=== PATIENT | female | born 1965 | race Caucasian/White ===

== ENCOUNTER 2018-07-02 04:51 | Inpatient (IN) | payer BC ==
[2018-07-02 05:45] LABS: Absolute Lymphocytes (CBC) 3.1 K/uL (0.7-4.9); Absolute Monocytes 0.6 K/uL (0.1-1.3); Absolute Neutrophil 3.9 K/uL (1.8-8.0); Eosinophils % 2.4 % (0-4.4); Hematocrit 41.9 % (36.0-45.0); Lymphocytes % 39.2 % (15.3-44.8); Monocytes % 7.8 % (3.3-12.3); RBC Red Blood Cell Count 4.84 M/uL (3.86-4.86)
[2018-07-02 06:01] LABS: ALT/SGPT 18 U/L (12-78); AST/SGOT 10 U/L (15-37); Albumin 3.7 g/dL (3.4-5.0); Alkaline Phosphatase 96 U/L (45-117); BUN Blood Urea Nitrogen 10 mg/dL (7-18); Bicarbonate 24 mmol/L (21-32); Bilirubin Direct 0.2 mg/dL (0-0.2); Bilirubin Total 0.8 mg/dL (0.2-1.0); Glucose Level 84 mg/dL (74-106); Lipase 70 U/L (73-393); Potassium 3.7 mmol/L (3.5-5.1); Protein, Total 7.4 g/dL (6.4-8.2); Sodium Level 136 mmol/L (136-145)
[2018-07-02] MEDS ORDERED: KETOROLAC 30 MG/ML INJ ONE (06:46)
[2018-07-02] MEDS ORDERED: ONDANSETRON 4 MG/2 ML VIAL ONE ×2 (06:46→07:34)
[2018-07-02] MEDS ORDERED: MORPHINE 4 MG/ML SYR ONE ×2 (06:46→07:34)
[2018-07-02] MEDS ORDERED: NA CHLORIDE 0.9% 1,000 ML ONE ×2 (06:46→07:34)
[2018-07-02 07:13] LABS: Urine Blood NEGATIVE (NEG); Urine Glucose NEGATIVE (NEG); Urine Protein TRACE (NEG); Urine pH 8.5 (5.0-7.0)
[2018-07-02] MEDS ORDERED: HYDROMORPHONE HCL 1 MG/ML INJ ONE (08:54)
--- NOTE | 2018-07-02 08:55 | ER ---
Nurse's Notes [facility] Name: Varsha Huang Age: 53 yrs Sex: Female : 1965 Arrival Date: 07/02/2018 Time: 04:53 Bed 17 Private MD: Diagnosis: Unilateral femoral hernia, with obstruction, without gangrene, not specified as recurrent-Right Presentation: 07/02 05:14 Presenting complaint: Patient states: sudden right lower quadrant pain started 1930H rr5 last night continuous pain,crying facial grimace noted pain score of 10/10. diagnosed with ovary cyst right. Transition of care: patient was not received from another setting of care. Onset of symptoms was July 01, 2018 at 19:30. Risk Assessment: Do you want to hurt yourself or someone else? Patient reports no desire to harm self or others. Initial Sepsis Screen: Does the patient meet any 2 criteria? No. Patient's initial sepsis screen is negative. Does the patient have a suspected source of infection? No. Patient's initial sepsis screen is negative. Care prior to arrival: Medication(s) given: tramadol 50 mg and phentermine 37.5mg. 05:14 Method Of Arrival: Ambulatory rr5 05:14 Acuity: BINDU 3 rr5 Triage Assessment: 05:15 General: see nurses notes assessment. 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 - Social history:: Smoking status: Patient uses tobacco products, smokes one-half pack cigarettes per day, Patient/guardian denies using alcohol, street drugs. - Ebola Screening: : Patient negative for fever greater than or equal to 101.5 degrees Fahrenheit, and additional compatible Ebola Virus Disease symptoms Patient denies exposure to infectious person Patient denies travel to an Ebola-affected area in the 21 days before illness onset. - Family history:: not pertinent. Screenin:33 Abuse screen: Denies threats or abuse. Denies injuries from another. Nutritional rr5 screening: No deficits noted. On. Tuberculosis screening: No symptoms or risk factors identified. Fall Risk IV access (20 points). Total Ascencio Fall Scale indicates No Risk (0-24 pts). Assessment: 05:15 General: Appears uncomfortable, ill, Behavior is cooperative, appropriate for age, rr5 crying. 05:15 Pain: Complains of pain in Right lower quadrant Pain does not radiate. Pain currently rr5 is 10 out of 10 on a pain scale. Quality of pain is described as aching, Pain began gradually, Is continuous. Neuro: Level of Consciousness is awake, alert, obeys commands, Oriented to person, place, time, situation. Cardiovascular: Capillary refill < 3 seconds Patient's skin is warm and dry. Respiratory: Airway is patent Respiratory effort is even, unlabored, Respiratory pattern is tachypnea. GI: Bowel sounds present X 4 quads. Abd is soft and non tender X 4 quads. : Reports pain in right lower quadrant(s) diagnose with right ovary cyst. EENT: No signs and/or symptoms were reported regarding the EENT system. Derm: No signs and/or symptoms reported regarding the dermatologic system. Musculoskeletal: No signs and/or symptoms reported regarding the musculoskeletal system. 06:20 Reassessment: No changes from previously documented assessment. seen and examined by ed rr5 provider with order and carried out. 07:08 General: Appears uncomfortable, Behavior is cooperative, crying. Pain: Complains of aa5 pain in right lower quadrant Pain does not radiate. Pain currently is 9 out of 10 on a pain scale. Quality of pain is described as sharp, Pain began 1 day ago. Is continuous, Aggravated by repositioning, Noted to be resistant to movement. Neuro: Level of Consciousness is awake, alert, obeys commands, Oriented to person, place, time, situation. Cardiovascular: Heart tones S1 S2 present Rhythm is regular. Respiratory: Airway is patent Respiratory effort is even, unlabored, Respiratory pattern is regular, symmetrical. GI: Abdomen is round non-distended, Bowel sounds present X 4 quads. Abd is soft X 4 quads Abdomen is tender to palpation in right lower quadrant Reports nausea, Patient currently denies vomiting. : Denies vaginal bleeding. EENT: No signs and/or symptoms were reported regarding the EENT system. Derm: Skin is pink, warm \T\ dry. Musculoskeletal: Range of motion: intact in all extremities. 07:34 Reassessment: Pt taken to US via stretcher . aa5 08:32 Reassessment: Patient is alert, oriented x 3, equal unlabored respirations, skin aa5 warm/dry/pink. Patient states symptoms have improved. Pt back from US. Awaiting CT scan and US results at this time, pt notified of wait time. Pt's family at bedside . General: Appears comfortable. Pain: Pain currently is 4 out of 10 on a pain scale. 08:51 Reassessment: PA at bedside attempting to reduce hernia. aa5 09:05 Reassessment: Dr. Read at bedside (surgeon). aa5 09:40 Reassessment: Patient and/or family updated on plan of care and expected duration. Pain aa5 level reassessed. Patient is alert, oriented x 3, equal unlabored respirations, skin warm/dry/pink. Patient states feeling better. Vital Signs: 05:17 BP 131 / 89; Pulse 100; Resp 22; Temp 97.9; Pulse Ox 99% on R/A; Weight 93.44 kg; rr5 Height 5 ft. 4 in. (162.56 cm); Pain 10/10; 06:30 BP 115 / 72; Pulse 72; Resp 16; Pulse Ox 99% ; rr5 07:10 BP 118 / 69; Pulse 72; Resp 18 S; Temp 97.9(O); Pulse Ox 99% on R/A; Pain 9/10; aa5 08:35 BP 124 / 67; Pulse 65; Resp 16 S; Pulse Ox 100% on R/A; Pain 4/10; aa5 09:17 BP 113 / 60; Pulse 70; Resp 14; Pulse Ox 99% on R/A; mh5 09:40 BP 118 / 61; Pulse 64; Resp 16 S; Temp 98.0(TE); Pulse Ox 100% on R/A; Pain 2/10; aa5 05:17 Body Mass Index 35.36 (93.44 kg, 162.56 cm) rr5 ED Course: 04:53 Patient arrived in ED. ag3 05:13 Aditya Cruz, RN is Primary Nurse. rr5 05:15 Patient has correct armband on for positive identification. Bed in low position. Call rr5 light in reach. Side rails up X2. Pulse ox on. NIBP on. 05:17 Triage completed. rr5 05:20 Arm band placed on. rr5 05:30 Inserted saline lock: 22 gauge in right antecubital area, using aseptic technique. rr5 Blood collected. tc MORA. 06:00 Silver Justice MD is Attending Physician. [facility] 07:00 Report received from MORGAN Burgess. aa5 07:08 CT Stone Protocol In Process Unspecified. EDMS 07:32 Silver Santiago PA is PHCP. cp 07:41 Ultrasound completed. Patient tolerated well. sg3 08:38 No provider procedures requiring assistance completed. aa5 08:54 Avinash Read MD is Hospitalizing Provider. cp 09:26 Surgical consent explained by physician, signed by patient. iw 09:33 EKG done, by ED staff, reviewed by Ken Jaeger MD. mh5 09:37 X-ray completed. Portable x-ray completed in exam room. Patient tolerated procedure sg4 well. 09:43 XRAY Chest (1 view) In Process Unspecified. EDMS 09:48 Rosales cath inserted, using sterile technique, 18 Fr., by va, balloon inflated, to aa5 gravity drainage, returned clear yellow urine. Patient tolerated well. 09:55 Patient admitted, IV remains in place. aa5 Administered Medications: 06:30 Drug: Zofran 4 mg Route: IVP; Site: right antecubital; rr5 07:25 Follow up: Response: No adverse reaction rr5 06:30 Drug: NS 0.9% 1000 ml Route: IV; Rate: 1 bolus; Site: right antecubital; rr5 08:32 Follow up: IV fluids paused, pt to US at 0734. Pt back from US and fluids restarted at aa5 0832 09:15 Follow up: IV Status: Completed infusion aa5 06:32 Drug: morphine 4 mg Route: IVP; Site: right antecubital; rr5 07:25 Follow up: Response: No adverse reaction rr5 06:37 Drug: TORadol 30 mg Route: IVP; Site: right antecubital; rr5 07:25 Follow up: Response: No adverse reaction rr5 07:25 Drug: NS 0.9% 1000 ml Route: IV; Rate: 1 bolus; Site: right antecubital; aa5 08:32 Follow up: Fluids paused at 0734 (pt to US). Fluids restarted at 0832 (Pt back from US) aa5 09:40 Follow up: IV Status: Infusion continued upon admission aa5 07:25 Drug: morphine 4 mg Route: IVP; Site: right antecubital; aa5 07:33 Follow up: Response: No adverse reaction aa5 07:25 Drug: Zofran 4 mg Route: IVP; Site: right antecubital; aa5 07:33 Follow up: Response: No adverse reaction aa5 08:50 Drug: Dilaudid 1 mg Route: IVP; Site: right antecubital; aa5 08:53 Follow up: Response: No adverse reaction aa5 09:15 Drug: LevaQUIN 750 mg Volume: 150 ml; Route: IVPB; Infused Over: 90 mins; Site: right jl7 antecubital; 09:40 Follow up: Response: No adverse reaction; IV Status: Infusion continued upon admission aa5 09:20 Drug: metroNIDAZOLE 500 mg Volume: 100 ml; Route: IVPB; Infused Over: 30 mins; Site: jl7 right antecubital; 09:40 Follow up: Response: No adverse reaction; IV Status: Infusion continued upon admission aa5 Intake: Outcome: 08:55 Decision to Hospitalize by Provider. cp 09:55 Admitted to OR accompanied by nurse, via stretcher, with chart. aa5 09:55 Condition: stable 09:55 Instructed on the need for admit, Demonstrated understanding of instructions. 10:04 Patient left the ED. aa5 Signatures: Dispatcher [employer] Silver Rios MD MD cha Williams, Irene, RN Radha Bledsoe RN RN aa5 Silver Santiago PA PA cp Martinez, Maria 5 Vicki Li RN RN jl7 Luz Rain3 Asya Leija Susana sg4 Aditya Cruz, MORGAN RN rr5 Corrections: (The following items were deleted from the chart) 07:12 05:19 Allergies: sulfer; rr5 aa5 08:03 08:02 In radiology for Transvaginal Study (Probe)+US.RAD.[email or web address]. ELMIRA sg3
--- NOTE | 2018-07-02 08:56 | EDPHYS ---
Physician Documentation [facility] Name: Varsha Huang Age: 53 yrs Sex: Female : 1965 Arrival Date: 07/02/2018 Time: 04:53 Bed 17 Private MD: ED Physician Silver Justice HPI: 07/02 06:35 This 53 yrs old Female presents to ER via Ambulatory with complaints of fernando Abdominal Pain. 06:35 The patient presents with abdominal pain in the lower abdomen. Onset: The fernando symptoms/episode began/occurred 2 day(s) ago. The symptoms do not radiate. Associated signs and symptoms: none. The symptoms are described as crampy, sharp. Modifying factors: The symptoms are alleviated by nothing, the symptoms are aggravated by nothing. Severity of pain: At its worst the pain was moderate severe in the emergency department the pain is unchanged. The patient has experienced similar episodes in the past, multiple times. 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 - Social history:: Smoking status: Patient uses tobacco products, smokes one-half pack cigarettes per day, Patient/guardian denies using alcohol, street drugs. - Ebola Screening: : Patient negative for fever greater than or equal to 101.5 degrees Fahrenheit, and additional compatible Ebola Virus Disease symptoms Patient denies exposure to infectious person Patient denies travel to an Ebola-affected area in the 21 days before illness onset. - Family history:: not pertinent. ROS: 06:35 Constitutional: Negative for fever, chills, and weight loss, Eyes: Negative for injury, fernando pain, redness, and discharge, ENT: Negative for injury, pain, and discharge, Neck: Negative for injury, pain, and swelling, Cardiovascular: Negative for chest pain, palpitations, and edema, Respiratory: Negative for shortness of breath, cough, wheezing, and pleuritic chest pain, Back: Negative for injury and pain, : Negative for injury, bleeding, discharge, and swelling, MS/Extremity: Negative for injury and deformity, Skin: Negative for injury, rash, and discoloration, Neuro: Negative for headache, weakness, numbness, tingling, and seizure, Psych: Negative for depression, anxiety, suicide ideation, homicidal ideation, and hallucinations, Allergy/Immunology: Negative for hives, rash, and allergies, Endocrine: Negative for neck swelling, polydipsia, polyuria, polyphagia, and marked weight changes. 06:35 Abdomen/GI: Positive for abdominal pain, nausea and vomiting, of the suprapubic area, right lower quadrant and left lower quadrant. Exam: 06:35 Constitutional: This is a well developed, well nourished patient who is awake, alert, fernando and in no acute distress. Head/Face: Normocephalic, atraumatic. Eyes: Pupils equal round and reactive to light, extra-ocular motions intact. Lids and lashes normal. Conjunctiva and sclera are non-icteric and not injected. Cornea within normal limits. Periorbital areas with no swelling, redness, or edema. ENT: Nares patent. No nasal discharge, no septal abnormalities noted. Tympanic membranes are normal and external auditory canals are clear. Oropharynx with no redness, swelling, or masses, exudates, or evidence of obstruction, uvula midline. Mucous membranes moist. Neck: Trachea midline, no thyromegaly or masses palpated, and no cervical lymphadenopathy. Supple, full range of motion without nuchal rigidity, or vertebral point tenderness. No Meningismus. Chest/axilla: Normal chest wall appearance and motion. Nontender with no deformity. No lesions are appreciated. Cardiovascular: Regular rate and rhythm with a normal S1 and S2. No gallops, murmurs, or rubs. Normal PMI, no JVD. No pulse deficits. Respiratory: Lungs have equal breath sounds bilaterally, clear to auscultation and percussion. No rales, rhonchi or wheezes noted. No increased work of breathing, no retractions or nasal flaring. Abdomen/GI: Soft, non-tender, with normal bowel sounds. No distension or tympany. No guarding or rebound. No evidence of tenderness throughout. Back: No spinal tenderness. No costovertebral tenderness. Full range of motion. Skin: Warm, dry with normal turgor. Normal color with no rashes, no lesions, and no evidence of cellulitis. MS/ Extremity: Pulses equal, no cyanosis. Neurovascular intact. Full, normal range of motion. Neuro: Awake and alert, GCS 15, oriented to person, place, time, and situation. Cranial nerves II-XII grossly intact. Motor strength 5/5 in all extremities. Sensory grossly intact. Cerebellar exam normal. Normal gait. Psych: Awake, alert, with orientation to person, place and time. Behavior, mood, and affect are within normal limits. Vital Signs: 05:17 BP 131 / 89; Pulse 100; Resp 22; Temp 97.9; Pulse Ox 99% on R/A; Weight 93.44 kg; rr5 Height 5 ft. 4 in. (162.56 cm); Pain 10/10; 06:30 BP 115 / 72; Pulse 72; Resp 16; Pulse Ox 99% ; rr5 07:10 BP 118 / 69; Pulse 72; Resp 18 S; Temp 97.9(O); Pulse Ox 99% on R/A; Pain 9/10; aa5 08:35 BP 124 / 67; Pulse 65; Resp 16 S; Pulse Ox 100% on R/A; Pain 4/10; aa5 09:17 BP 113 / 60; Pulse 70; Resp 14; Pulse Ox 99% on R/A; mh5 09:40 BP 118 / 61; Pulse 64; Resp 16 S; Temp 98.0(TE); Pulse Ox 100% on R/A; Pain 2/10; aa5 05:17 Body Mass Index 35.36 (93.44 kg, 162.56 cm) rr5 MDM: 06:00 Patient medically screened. [facility] 06:36 Data reviewed: vital signs, nurses notes, lab test result(s), radiologic studies, CT fernando scan, ultrasound. 08:51 Physician consultation: Avinash Read MD was called at 08:40, was contacted at 08:40, cp regarding patient's condition, and will see patient in ED, shortly. 07/02 05:20 Order name: Basic Metabolic Panel; Complete Time: 06:19 ms 07/02 05:20 Order name: CBC with Diff; Complete Time: 06:19 ms 07/02 05:20 Order name: Creatinine for Radiology; Complete Time: 06:19 ms 07/02 05:20 Order name: Hepatic Function; Complete Time: 06:19 ms 07/02 05:20 Order name: Lipase; Complete Time: 06:19 ms 07/02 06:50 Order name: Urine Dipstick--Ancillary (enter results); Complete Time: 07:15 07/02 06:50 Order name: Urine --Ancillary (enter results) 07/02 09:07 Order name: PT-INR 07/02 09:07 Order name: Ptt, Activated 07/02 09:58 Order name: Basic Metabolic Panel EDMS 07/02 09:58 Order name: Basic Metabolic Panel EDMS 07/02 09:58 Order name: CBC with Automated Diff EDMS 07/02 09:58 Order name: CBC with Automated Diff EDMS 07/02 09:58 Order name: Lipase EDMS 07/02 06:34 Order name: US Transvaginal Study (Probe) [facility] 07/02 06:34 Order name: CT Stone Protocol [facility] 07/02 08:57 Order name: XRAY Chest (1 view) 07/02 09:58 Order name: Lipase ED[facility] 07/02 09:58 Order name: Liver (Hepatic) Function EDNH 07/02 09:58 Order name: Liver (Hepatic) Function ED[facility] 07/02 05:20 Order name: IV Saline Lock; Complete Time: 05:38 ny 07/02 05:20 Order name: Labs collected and sent; Complete Time: 05:45 ny 07/02 05:20 Order name: Urine Dipstick-Ancillary (obtain specimen); Complete Time: 06:38 ny 07/02 06:34 Order name: Urine Test (obtain specimen); Complete Time: 06:57 [facility] 07/02 08:57 Order name: EKG; Complete Time: 08:58 07/02 08:57 Order name: EKG - Nurse/Tech; Complete Time: 09:26 07/02 09:07 Order name: Rosales; Complete Time: 09:51 07/02 09:16 Order name: NPO; Complete Time: 09:27 07/02 09:58 Order name: NPO EDMS Administered Medications: 06:30 Drug: Zofran 4 mg Route: IVP; Site: right antecubital; rr5 07:25 Follow up: Response: No adverse reaction rr5 06:30 Drug: NS 0.9% 1000 ml Route: IV; Rate: 1 bolus; Site: right antecubital; rr5 08:32 Follow up: IV fluids paused, pt to US at 0734. Pt back from US and fluids restarted at aa5 0832 09:15 Follow up: IV Status: Completed infusion aa5 06:32 Drug: morphine 4 mg Route: IVP; Site: right antecubital; rr5 07:25 Follow up: Response: No adverse reaction rr5 06:37 Drug: TORadol 30 mg Route: IVP; Site: right antecubital; rr5 07:25 Follow up: Response: No adverse reaction rr5 07:25 Drug: NS 0.9% 1000 ml Route: IV; Rate: 1 bolus; Site: right antecubital; aa5 08:32 Follow up: Fluids paused at 0734 (pt to US). Fluids restarted at 0832 (Pt back from US) aa5 09:40 Follow up: IV Status: Infusion continued upon admission aa5 07:25 Drug: morphine 4 mg Route: IVP; Site: right antecubital; aa5 07:33 Follow up: Response: No adverse reaction aa5 07:25 Drug: Zofran 4 mg Route: IVP; Site: right antecubital; aa5 07:33 Follow up: Response: No adverse reaction aa5 08:50 Drug: Dilaudid 1 mg Route: IVP; Site: right antecubital; aa5 08:53 Follow up: Response: No adverse reaction aa5 09:15 Drug: LevaQUIN 750 mg Volume: 150 ml; Route: IVPB; Infused Over: 90 mins; Site: right jl7 antecubital; 09:40 Follow up: Response: No adverse reaction; IV Status: Infusion continued upon admission aa5 09:20 Drug: metroNIDAZOLE 500 mg Volume: 100 ml; Route: IVPB; Infused Over: 30 mins; Site: jl7 right antecubital; 09:40 Follow up: Response: No adverse reaction; IV Status: Infusion continued upon admission aa5 Disposition: 07/02/18 08:55 Hospitalization ordered by Avinash Read for Inpatient Admission. Preliminary diagnosis is Unilateral femoral hernia, with obstruction, without gangrene, not specified as recurrent - Right. - Bed requested for Operating Room. - Status is Inpatient Admission. aa5 - Condition is Stable. - Problem is new. - Symptoms are unchanged. UTI on Admission? No Addendum: 07/11/2018 11:22 Co-signature as Attending Physician, Silver Justice MD I agree with the assessment and c grant plan of care. Signatures: Dispatcher [employer] EDSilver Park MD MD cha Solis, Maria ms Hein, Radha, RN RN aa5 Silver Santiago PA PA cp Leal, Jahala RN RN jl7 Aditya Cruz RN RN rr5 Corrections: (The following items were deleted from the chart) 07/02 07:12 05:19 Allergies: sulfer; rr5 aa5 09:08 08:55 Hospitalization Ordered by Avinash Read MD for Inpatient Admission. Preliminary cp diagnosis is Unilateral femoral hernia, with obstruction, without gangrene, not specified as recurrent - Right. Bed requested for Telemetry/MedSurg (Inpatient). Status is Inpatient Admission. Condition is Stable. Problem is new. Symptoms are unchanged. UTI on Admission? No. cp 10:04 09:08 07/02/2018 08:55 Hospitalization Ordered by Avinash Read MD for Inpatient aa5 Admission. Preliminary diagnosis is Unilateral femoral hernia, with obstruction, without gangrene, not specified as recurrent - Right. Bed requested for Operating Room. Status is Inpatient Admission. Condition is Stable. Problem is new. Symptoms are unchanged. UTI on Admission? No. cp
[2018-07-02] MEDS ORDERED: Levofloxacin 750mg IV 750 MG/150 ML BAG IV ONE (09:09)
[2018-07-02] MEDS ORDERED: METRONIDAZOLE 500mg IVPB 500 MG/100 ML BAG IV ONE (09:09)
[2018-07-02] MEDS ORDERED: ONDANSETRON 4 MG/2 ML VIAL IV PRN (09:54)
[2018-07-02] MEDS ORDERED: ACETAMINOPHEN 500 MG TAB PO PRN (09:54)
[2018-07-02] MEDS ORDERED: HYDROMORPHONE HCL 1 MG/ML INJ IV PRN (09:54)
[2018-07-02] MEDS ORDERED: D5 0.45 NS 1,000 ML IV SCH (10:00)
[2018-07-02] MEDS ORDERED: Ringers Lactate 1,000 ML IV ONE ×2 (10:25→13:38)
[2018-07-02] MEDS ORDERED: BUPIVACAINE 0.75% (PF) 2 ML SP ONE (10:40)
[2018-07-02] MEDS ORDERED: FENTANYL CITR 100 MCG/2 ML ONE (10:44)
[2018-07-02] MEDS ORDERED: MIDAZOLAM HCL 2 MG/2 ML INJ ONE (10:45)
[2018-07-02] MEDS ORDERED: BUPIVACA 0.25%/EPI 0.0005% MDV 50 ML VIAL ONE (10:45)
[2018-07-02] MEDS ORDERED: Phenylephrine HCl 10 MG/ML 1 ML VIAL ONE (10:45)
[2018-07-02] MEDS ORDERED: EPHEDRINE SULF 50 MG/10 ML SYR ONE (10:52)
[2018-07-02] MEDS ORDERED: LIDOCAINE 1% MPF 30 ML VIAL ONE (11:04)
--- NOTE | 2018-07-02 12:11 | RAD REPORT ---
EXAM DESCRIPTION: RAD - Chest Single View - 07/02/2018 9:42 am CLINICAL HISTORY: bowel obstruction Chest pain. COMPARISON: CHEST SINGLE VIEW dated 12/08/2014 FINDINGS: Portable technique limits examination quality. The lungs are grossly clear. The heart is normal in size. No displaced fractures. IMPRESSION: No acute intrathoracic process suspected.
--- NOTE | 2018-07-02 12:15 | RAD REPORT ---
EXAM DESCRIPTION: US - Transvaginal Study Probe - 07/02/2018 8:02 am CLINICAL HISTORY: Pain;Abd pain Pelvic pain. COMPARISON: No comparisons FINDINGS: The uterus is normal in size, shape and echotexture. The uterus measures 9.1 x 5.2 x 3.9 c m. The endometrial stripe measures 4 mm, normal. The right ovary measures 4.5 x 2.3 x 1.6 cm and contains multiple simple cysts, largest 2.5 x 2.2 cm. The left ovary was obscured by bowel gas. No significant pelvic ascites. IMPRESSION: Several right ovarian simple cysts, otherwise negative study.
--- NOTE | 2018-07-02 12:19 | P.OP ---
Preoperative diagnosis: Right Incarcerated Femoral Hernia Postoperative diagnosis: Right Incarcerated Femoral Hernia Primary procedure: Open Repair of Right Incarcerated Femoral Hernia Anesthesia: Spinal + Local Estimated blood loss: <2cc Specimen: Hernia Sack Findings: ~1cm hernia neck, bowel viable Complications: None Drain(s): Urinary catheter Transferred to: Recovery Room Condition: Good
--- NOTE | 2018-07-02 12:31 | RAD REPORT ---
EXAM DESCRIPTION: CT - Stone Protocol - 07/02/2018 7:08 am CLINICAL HISTORY: Flank pain. ABD PAIN COMPARISON: No comparisons TECHNIQUE: Axial images were obtained without oral or IV contrast. Lack of contrast limits solid org an and vascular assessment. The [id number] spans the entirety of the system partially obscuring uppermost abdomen and lung bases. Coronal reformatted images were obtained and reviewed. All CT scans are performed using dose optimization technique as appropriate and may include automated exposure control or mA/KV adjustment according to patient size. FINDINGS: The lower lung rodriguez are clear. Cholecystectomy clips. Imaged portions of the liver and spleen show no suspicious findings on non-contrast imaging. The panc reas and adrenal glands are normal. No pathologic lymphadenopathy in the abdomen or pelvis. No urinary tract stones or obstructive uropathy. No bowel obstruction, free air, free fluid or abscess. Normal appendix noted. No significant bony abnormality. Right inguinal hernia is present containing fat and a small section of small bowel. Small amount of inflammatory changes are present within the hernia. IMPRESSION: No urinary tract stones or obstructive uropathy. Small bowel containing small right inguinal hernia. Mild inflammation in the hernia sac is seen.
[2018-07-02] MEDS ORDERED: ONDANSETRON 4 MG (ODT) TAB PO PRN (12:59)
[2018-07-02 14:55] LABS: Protime INR 1.13
[2018-07-02] MEDS: INSULIN -REGULAR HUMAN 50 UNIT/0.5 ML ML SQ SCH ×2 (16:02→21:00)
[2018-07-02] MEDS ORDERED: METRONIDAZOLE 500mg IVPB 500 MG/100 ML BAG IV SCH (17:00)
--- NOTE | 2018-07-02 17:27 | EKG ---
Test Date: 2018-07-02 Test Time: 09:27:32 Technical Editor: MICK MEASUREMENT RESULTS: Intervals: Rate: 54 CA: 146 QRSD: 90 QT: 428 QTc: 405 [place]: P: 13 CA: 146 QRS: 39 T: 25 INTERPRETIVE STATEMENTS: Sinus bradycardia Otherwise normal ECG Compared to ECG 12/07/2014 21:22:54 Sinus rhythm no longer present Electronically Signed On 07-02-18 17:17:52 DRAFTER TOPOGRAPHICAL by Sal Abebe
[2018-07-02] MEDS: HYDROCODONE/APAP 7.5/325 MG TAB PO PRN ×2 (17:54→23:56)
[2018-07-02] MEDS ORDERED: POTASSIUM CL SA 10 MEQ TAB PO ONE (20:00)
--- NOTE | 2018-07-02 20:45 | HP ---
Date of Admission: 07/02/2018 Brief History Of Present Illness: The patient is a 53-year-old female, who presents with a pproximately 1-day history of abdominal pain beginning in the belt-like distribution and then localiz ing to the right lower quadrant. She has had similar episodes before several weeks ago. She had bee n seen at [facility]. She states she had CTs of the abdomen and pelvis, which did not show any evidence of problems at that time, but these reports are unavailable for my review at this time. Sh e states the pain got progressively worse and it was localized to the right lower quadrant. She had a little knot appear in this area, which was quite tender to palpation. She has had similar episodes before in the past over several years, but they typically will go away on their own with lying down, but on this particular occasion, it did not get any better. She had some mild nausea associated wit h no vomiting. No change in bowel or bladder habits, but the pain was the main reason for her presen tation. Past Medical History: Significant for ovarian cyst on the right. Past Surgical History: She has had a cholecystectomy, a tubal ligation, an endometrial ablation davis svaginally, ankle surgery, and lower back surgery. Allergies: TO SULFA. Home Medications: Include tramadol and phentermine. Social History: She is a pack per day smoker for approximately 20 years. She denies alcohol or recr eational drug use. 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 Review of Systems: A 10-point review of systems other than HPI, denies. Physical Examination: General: At the time of my examination, she is awake, alert, and oriented. Psychiatric: She is appropriately conversive. HEENT: She is normocephalic. Her sclerae are anicteric. Her mucous membranes are moist. Oropharyn x is clear. She has poor dentition. Neck: Supple without JVD. Chest: Normal expansion and excursion. Cardiovascular: Regular rate and rhythm. Pulmonary: Clear to auscultation bilaterally. Abdomen: Soft, obese with mild tenderness in the right lower quadrant. There is a palpable hernia i n the femoral canal in the right abdomen which is incarcerated at this time. I am unable to reduce t he hernia at this time. Extremities: No clubbing, cyanosis, or edema. Skin: Warm and dry. Laboratory Data: Reveals a white blood count 10.8, hemoglobin 14.6, hematocrit 41.9, platelet count is 227, neutrophils are 49.6. PT is currently pending. Sodium 136, potassium 3.7, chloride 107, car bon dioxide 24, BUN 10, creatinine 0.4, glucose is 84, total bilirubin 0.8, direct component 0.2. T 10, ALT 18, alkaline phosphatase 96. Lipase 70. Urine test was negative. Urinalysis on ly showed 3+ ketones, otherwise negative. She had imaging performed which included a CT of the abdom en and pelvis, which was read by the night radiologist as right femoral hernia containing short segme nt of small bowel and producing associated small bowel obstruction. Normal appendix otherwise. Assessment And Plan: This is a 53-year-old female, who comes in with an incarcerated right femoral h ernia. 1.IV fluid hydration. 2.N.p.o. status. 3.Antibiotic coverage. 4.I have explained the risks, benefits, and alternatives of open femoral hernia repair possibly with use of mesh. I have explained the risks, benefits, and alternatives of this, including but not limi felice to bleeding, infection, damage to surrounding tissues, injury to blood vessels, nerves, limb dysf unction, leg dysfunction, foot dysfunction, swelling, which may be permanent to the right lower extremity, need for further operations and procedures. She agrees to proceed as indicated. TOMMY/SAMAN Voice ID: [id number]
--- NOTE | 2018-07-02 22:09 | OP ---
Date of Procedure: 07/02/2018 Surgeon: Avinash Read MD, MD Preoperative Diagnosis: Right incarcerated femoral hernia. Postoperative Diagnosis: Right incarcerated femoral hernia. Procedure Performed: Open repair of right incarcerated femoral hernia. Anesthesia: Spinal plus local. Estimated Blood Loss: Less than 2 cc. Specimens: Hernia sac. Findings: Approximately 1 cm hernia neck with small bowel, which was viable. No evidence of strangulations; however, the bowel was incarcerated. Complications: None. Drains: Urinary catheter. Disposition: Transferred to recovery room in good condition. Procedure In Detail: After informed consent was obtained, the patient was brought to the operating room, prepped and draped in the usual sterile fashion. After adequate spinal anesthesia was achieved, I tested the area of the right skin and it was found to be fairly insensate. I anesthetized the skin with additional local anesthesia and performed a Lotheissen type incision over the right inguinal area. I dissected down through the Camper's fat and Evelia's fascia using electrocautery down to expose the external oblique aponeurosis which was opened sharply with the scalpel and opened in its entirety with Metzenbaum scissors. I continued to dissect down towards the femoral canal and I exposed the femoral hernia defect. I dissected circumferentially around the neck, which found to be approximately 1 cm in size and open the hernia sac. Murky serosanguineous fluid was appreciated and the small bowel was then inspected at this time is found to be somewhat hyperemic button, but viable and pink and peristalsing and shiny. I therefore gently reduced the small bowel back to the preperitoneal space in the normal anatomic position and inspected the bowel. At this time, it pinked up perfectly and remained visible through the hernia neck defect. I then inspected the bowel 1 last time through the hernia defect and found the bowel to be entirely viable. I then irrigated the area and dried it. I then closed and ligated the hernia neck using a 0 Prolene suture with good hemostasis. I then ligated and removed the hernia sac and sent it off for pathologic examination. I then returned the hernia sac into the preperitoneal space through the hernia defect. I then digitally examined the defect and it was quite closed. At this time, I irrigated the area once again and moving medially to laterally. I secured the pectineal ligament to the iliopubic tract over the defect with 3 interrupted stitches from the pectineal fascia to the iliopubic tract. I then irrigated the area once again and the defect was quite well closed. The femoral vein was protected throughout its entirety. There was no kink or involvement of the femoral vein throughout the procedure. I then irrigated the area once again and dried it, and closed the external oblique aponeurosis over the defect, and using a 3-0 Vicryl in a running fashion with good approximation tissues, I irrigated it once again and dried, and then I closed Camper's fat and Evelia's fascia on block with a running 3-0 Vicryl suture. Once again, the skin was then copiously irrigated and closed with a 4-0 Monocryl in a running fashion. Dermabond placed over top. The patient tolerated the procedure well without evidence of complications, transferred to the PACU in good condition. All counts were correct at the end of the case. TOMMY/SAMAN Voice ID: [id number] Report ID: [id number] SAHARA
[2018-07-03 03:58] LABS: Absolute Lymphocytes (CBC) 1.9 K/uL (0.7-4.9); Absolute Monocytes 0.5 K/uL (0.1-1.3); Absolute Neutrophil 3.8 K/uL (1.8-8.0); Basophils % 0.7 % (0-1.3); Eosinophils % 4.2 % (0-4.4); Hematocrit 39.2 % (36.0-45.0); Lymphocytes % 29.7 % (15.3-44.8); MPV 7.8 fL (7.6-11.3); RBC Red Blood Cell Count 4.39 M/uL (3.86-4.86)
[2018-07-03 04:17] LABS: ALT/SGPT 72 U/L (12-78); AST/SGOT 57 U/L (15-37); Albumin 3.1 g/dL (3.4-5.0); Alkaline Phosphatase 131 U/L (45-117); BUN Blood Urea Nitrogen 9 mg/dL (7-18); Bicarbonate 26 mmol/L (21-32); Bilirubin Direct 0.2 mg/dL (0-0.2); Bilirubin Total 0.5 mg/dL (0.2-1.0); Glucose Level 103 mg/dL (74-106); Lipase 63 U/L (73-393); Magnesium 1.7 mg/dL (1.8-2.4); Phosphorus 3.4 mg/dL (2.5-4.9); Potassium 3.9 mmol/L (3.5-5.1); Protein, Total 6.3 g/dL (6.4-8.2); Sodium Level 138 mmol/L (136-145)
[2018-07-03] MEDS: MORPHINE 2 MG/ML SYR IV PRN ×3 (07:00→21:53)
[2018-07-03] MEDS: INSULIN -REGULAR HUMAN 50 UNIT/0.5 ML ML SQ SCH ×4 (07:30→21:00)
[2018-07-03] MEDS ORDERED: POTASSIUM 25 MEQ EFFERV TAB PO ONE (08:00)
[2018-07-03] MEDS ORDERED: MAGNESIUM SULFATE 1 gm IVPB 1 GM/100 ML BAG IV ONE ×2 (08:00)
[2018-07-03] MEDS: Levofloxacin500mg IV 500 MG/100 ML BAG IV SCH (08:45)
[2018-07-03] MEDS: ENOXAPARIN 40 MG/0.4 ML SQ SCH (08:45)
[2018-07-03] MEDS ORDERED: Levofloxacin 750mg IV 750 MG/150 ML BAG IV SCH (09:00)
[2018-07-03] MEDS: HYDROCODONE/APAP 7.5/325 MG TAB PO PRN ×2 (10:06→17:50)
--- NOTE | 2018-07-03 14:21 | P.PN ---
Subjective Date of Service: 07/03/18 Chief Complaint: Femoral Hernia with bowel obstruction Subjective: Improving (Pain is improved from prior, but bottom steep tender in the RIGHT groin, minimal gas, no nausea or emesis) Physical Examination - Vital Signs Temperature: 98.3 F Blood Pressure: 107/57 Pulse: 83 Respirations: 16 Pulse Ox (%): 98 - Physical Exam General: Alert, In no apparent distress, Cooperative Respiratory: Normal air movement Cardiovascular: No edema Gastrointestinal: Other (soft, mild appropriate TTP to the RLQ, incision clean and dry) Assessment And Plan - Current Problems (Diagnosis) (1) Femoral hernia of right side Current Visit: Yes Status: Acute Plan: - continue diet - continue hydration - continue pain medication - lovenox - ambulate with assist - serial exams - await bowel function
[2018-07-04] MEDS: HYDROCODONE/APAP 7.5/325 MG TAB PO PRN (03:40)
[2018-07-04 05:30] LABS: BUN Blood Urea Nitrogen 6 mg/dL (7-18); Bicarbonate 28 mmol/L (21-32); Glucose Level 92 mg/dL (74-106); Magnesium 1.8 mg/dL (1.8-2.4); Phosphorus 3.4 mg/dL (2.5-4.9); Sodium Level 139 mmol/L (136-145)
[2018-07-04] MEDS ORDERED: MAGNESIUM SULFATE 1 gm IVPB 1 GM/100 ML BAG IV ONE (05:52)
[2018-07-04] MEDS: INSULIN -REGULAR HUMAN 50 UNIT/0.5 ML ML SQ SCH (07:30)
[2018-07-04] MEDS ORDERED: MORPHINE 4 MG/ML SYR IV PRN (09:00)
[2018-07-04] MEDS: ENOXAPARIN 40 MG/0.4 ML SQ SCH (09:17)
[2018-07-04] MEDS: Levofloxacin500mg IV 500 MG/100 ML BAG IV SCH (09:17)
--- NOTE | 2018-07-04 10:25 | P.DS ---
Admission Date: 07/02/18 Discharge Date: 07/04/18 Disposition: ROUTINE DISCHARGE Discharge Condition: GOOD Reason for Admission: Femoral Hernia with bowel obstruction Procedures: Open Right Femoral Hernia Repair - NO MESH - Problems (1) Femoral hernia of right side Current Visit: Yes Status: Acute Brief History of Present Illness: Patient is a 53 year old woman who presented with lump and tenderness to Right groin, workup revealed SBO due to femoral hernia Hospital Course: Patient did well post op and was tolerating diet, + bowel function, pain well controlled, was going outside to smoke. Vital Signs/Physical Exam: Temp Pulse Resp BP Pulse Ox 98.4 F 74 16 104/51 L 96 07/04/18 08:00 07/04/18 08:00 07/04/18 08:00 07/04/18 08:00 07/04/18 08:00 General: Alert, In no apparent distress, Cooperative Respiratory: Clear to auscultation bilaterally Cardiovascular: Normal pulses Gastrointestinal: Other (soft, mild appropriate TTP, ND, incisions clean and dry ) Laboratory Data at Discharge: WBC 6.5 K/uL (4.3-10.9) D 07/03/18 03:50 Hgb 13.2 g/dL (12.0-15.0) 07/03/18 03:50 Hct 39.2 % (36.0-45.0) 07/03/18 03:50 Plt Count 172 K/uL (152-406) D 07/03/18 03:50 PT 13.4 SECONDS (9.5-12.5) H 07/02/18 14:38 INR 1.13 07/02/18 14:38 APTT 35.3 SECONDS (24.3-36.9) 07/02/18 14:38 Sodium 139 mmol/L (136-145) 07/04/18 04:45 Potassium 4.0 mmol/L (3.5-5.1) 07/04/18 04:45 BUN 6 mg/dL (7-18) L 07/04/18 04:45 Creatinine 0.52 mg/dL (0.55-1.3) L 07/04/18 04:45 Glucose 92 mg/dL (74-106) 07/04/18 04:45 Phosphorus 3.4 mg/dL (2.5-4.9) 07/04/18 04:45 Magnesium 1.8 mg/dL (1.8-2.4) 07/04/18 04:45 Total Bilirubin 0.5 mg/dL (0.2-1.0) 07/03/18 03:50 AST 57 U/L (15-37) H 07/03/18 03:50 ALT 72 U/L (12-78) 07/03/18 03:50 Alkaline Phosphatase 131 U/L (45-117) H 07/03/18 03:50 Lipase 63 U/L (73-393) L 07/03/18 03:50 Home Medications: LORazepam [Ativan*] 1 tab PO BEDTIME PRN PRN 07/02/18 Phentermine HCl 37.5 mg PO DAILY 07/02/18 Tramadol HCl [Ultram] 50 mg PO BID 07/02/18 Diet: Regular Activity: No lifting more than 10 lbs
== END 2018-07-04 11:10 | disposition home or self-care (01) | DRG 352 ==
LOC: ER 04:51 → ERHOLD 09:53 → UNDOADMIN 09:53 → OR 09:53 → 4TH 13:43
PROVIDERS: ADMIT Surgery; ATTEND Surgery
PROC: 0YQ70ZZ Repair Right Femoral Region, Open Approach (ICD-10-PCS; principal; 2018-07-02 10:30)
DX: K41.30 Unilateral femoral hernia, with obstruction, without gangrene, not specified as recurrent (principal); F17.210 Nicotine dependence, cigarettes, uncomplicated
CPT/HCPCS: 36415; 51702; 71045; 74176; 76377; 76830; 80048; 80076; 81003; 81025; 82962; 83690; 83735; 84100; 85025; 85610; 85730; 88302; 93005; 96361; 96365; 96375; 99285; J1170; J1650; J2250; J2270; J2370; J2405; J3010; J3475; J7030

== ENCOUNTER 2022-01-16 05:13 | Inpatient (IN) | payer BC ==
[2022-01-16] MEDS ORDERED: NA CHLORIDE 0.9% 1,000 ML ONE (05:46)
[2022-01-16] MEDS ORDERED: LEVALBUTEROL 1.25 MG/3 ML NEB ONE ×2 (05:46→05:53)
[2022-01-16] MEDS ORDERED: METHYLPREDNISOLONE 125 MG INJ ONE (05:46)
[2022-01-16] MEDS ORDERED: IPRATROPIUM BROM 0.5MG/2.5ML ONE (05:46)
[2022-01-16] MEDS ORDERED: dexAMETHasone 10 MG/ML VIAL ONE (05:53)
[2022-01-16 05:55] LABS: Absolute Lymphocytes (CBC) 3.4 K/uL (0.7-4.9); Hematocrit 40.8 % (36.0-45.0); Lymphocytes % 37.4 % (15.3-44.8); MCV 85.5 fL (80-100); MPV 7.4 fL (7.6-11.3); RBC Red Blood Cell Count 4.77 M/uL (3.86-4.86)
[2022-01-16 05:57] LABS: Protime INR 1.11
[2022-01-16 06:09] LABS: ALT/SGPT 23 U/L (12-78); AST/SGOT 9 U/L (15-37); Albumin 3.1 g/dL (3.4-5.0); Alkaline Phosphatase 99 U/L (45-117); BUN Blood Urea Nitrogen 12 mg/dL (7-18); Bicarbonate 24 mmol/L (21-32); Bilirubin Direct < 0.1 mg/dL (0-0.2); Bilirubin Total 0.2 mg/dL (0.2-1.0); Glomerular Filtration Rate 87 ml/min (=/>90); Glucose Level 129 mg/dL (74-106); NT PRO-BNP 73 pg/mL (<125); Potassium 3.7 mmol/L (3.5-5.1); Protein, Total 6.8 g/dL (6.4-8.2); Sodium Level 142 mmol/L (136-145); Troponin High Sensitivity 3.2 pg/mL (<58.9)
--- NOTE | 2022-01-16 07:12 | ER ---
Nurse's Notes [facility] Name: Varsha Huang Age: 56 yrs Sex: Female : 1965 Arrival Date: 01/16/2022 Time: 05:14 Bed 7 Private MD: Diagnosis: Bronchopneumonia, unspecified organism;Acute bronchospasm;Dyspnea;Tobacco abuse counseling;Tobacco use Presentation: 01/16 05:22 Chief complaint: Patient states: "I woke up and I just couldn't catch my breath. I was tw5 coughing so hard that I got light headed and dizzy. ". Coronavirus screen: Vaccine status: Patient reports receiving the 2nd dose of the covid vaccine. Moderna. Ebola Screen: Patient negative for fever greater than or equal to 101.5 degrees Fahrenheit, and additional compatible Ebola Virus Disease symptoms Patient denies exposure to infectious person. Patient denies travel to an Ebola-affected area in the 21 days before illness onset. Initial Sepsis Screen: Does the patient meet any 2 criteria? No. Patient's initial sepsis screen is negative. Does the patient have a suspected source of infection? No. Patient's initial sepsis screen is negative. Risk Assessment: Do you want to hurt yourself or someone else? Patient reports no desire to harm self or others. Onset of symptoms was January 16, 2022 at 04:45. 05:22 Method Of Arrival: Wheelchair tw5 05:22 Acuity: BINDU 2 tw5 Triage Assessment: 05:25 General: Appears uncomfortable, obese, Behavior is calm, cooperative, appropriate for tw5 age. Pain: Complains of pain in diaphragm Pain currently is 6 out of 10 on a pain scale. Quality of pain is described as squeezing. Respiratory: Reports shortness of breath at rest cough that is hacking, persistent Onset: The symptoms/episode began/occurred just prior to arrival, the patient has moderate shortness of breath. 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 - Social history:: Smoking status: Patient reports the use of cigarette tobacco products, "I quiet about a week ago. I was smoking less than a pack a day.". Screenin:29 Abuse screen: Denies threats or abuse. Denies injuries from another. Nutritional tw5 screening: No deficits noted. Tuberculosis screening: No symptoms or risk factors identified. Fall Risk No fall in past 12 months (0 pts). Assessment: 05:41 Respiratory: Airway is patent Breath sounds are clear bilaterally. kd3 06:06 General: Appears uncomfortable, Behavior is calm, cooperative. Neuro: Level of kd3 Consciousness is awake, alert, obeys commands, Oriented to person, place, time, situation. Cardiovascular: Patient's skin is warm and dry. Rhythm is regular. Respiratory:. 06:07 Respiratory: Respiratory effort is even. kd3 07:25 General: Appears in no apparent distress. comfortable, Behavior is calm, cooperative. em6 Pain: Denies pain. Neuro: Ochoa Agitation-Sedation Scale (RASS): 0 - Alert and Calm Level of Consciousness is awake, alert, obeys commands, Oriented to person, place, time, situation. Cardiovascular: Heart tones S1 S2 present Patient's skin is warm and dry. Rhythm is regular. Respiratory: Airway is patent Respiratory effort is even, Breath sounds with wheezes in left upper lobe. GI: No signs and/or symptoms were reported involving the gastrointestinal system. : No signs and/or symptoms were reported regarding the genitourinary system. EENT: No signs and/or symptoms were reported regarding the EENT system. Derm: No signs and/or symptoms reported regarding the dermatologic system. Musculoskeletal: No signs and/or symptoms reported regarding the musculoskeletal system. Vital Signs: 05:22 BP 129 / 53; Pulse 60; Resp 18; Temp 97.5; Pulse Ox 93% on R/A; Weight 107.95 kg; tw5 Height 5 ft. 4 in. (162.56 cm); Pain 6/10; 06:05 BP 103 / 58; Pulse 63; Resp 19; Pulse Ox 95% on R/A; kd3 07:58 BP 104 / 64; Pulse 74; Resp 20; Pulse Ox 99% on R/A; em6 05:22 Body Mass Index 40.85 (107.95 kg, 162.56 cm) tw5 ED Course: 05:14 Patient arrived in ED. bp1 05:22 Cristian Radha is Primary Nurse. tw 05:25 Triage completed. tw 05:25 Arm band placed on. EKG completed in triage. Results shown to MD. tw 05:29 Patient has correct armband on for positive identification. Bed in low position. Call tw5 light in reach. Side rails up X2. Client placed on continuous cardiac and pulse oximetry monitoring. NIBP monitoring applied. Door closed. Noise minimized. Lights dimmed. Moved to private room. Warm blanket given. Verbal reassurance given. 05:29 Initial lab(s) drawn, by ED staff, sent to lab. EKG done. Inserted saline lock: 20 tw5 gauge in left antecubital area, using aseptic technique. ,using aseptic technique. Started by Darnell Blood collected. 05:30 Silver Justice MD is Attending Physician. fernando 05:33 D-Dimer Sent. tw5 05:33 Basic Metabolic Panel Sent. tw5 05:33 CBC with Diff Sent. tw5 05:33 LFT's Sent. tw 05:33 NT PRO-BNP Sent. tw5 05:33 PT-INR Sent. tw 05:33 Troponin HS Sent. tw 05:33 Magnesium Sent. tw 05:37 D-Dimer Sent. tw5 05:37 Flu Sent. tw5 05:37 Basic Metabolic Panel Sent. tw5 05:37 CBC with Diff Sent. tw5 05:37 LFT's Sent. tw5 05:37 Magnesium Sent. tw 05:37 NT PRO-BNP Sent. tw5 05:37 PT-INR Sent. tw5 05:37 Troponin HS Sent. tw5 05:53 D-Dimer Sent. tw5 05:53 SARS-COV-2 RT PCR (Document "Date of Onset" if Symptomatic) Sent. tw 05:53 Basic Metabolic Panel Sent. tw 05:54 CBC with Diff Sent. tw5 05:54 LFT's Sent. tw5 05:54 Magnesium Sent. tw5 05:54 NT PRO-BNP Sent. tw5 05:54 Troponin HS Sent. tw5 05:54 PT-INR Sent. tw5 06:02 XRAY Chest (1 view) In Process Unspecified. EDMS 06:03 Notified ED physician of a critical lab result(s). D-Dimer of [address] Dr Justice notified.bb 06:28 Blood Culture Adult (2) Sent. tw5 06:28 Lactate Sent. tw5 07:02 Ishaan Hussein MD is Hospitalizing Provider. fernando 07:05 CT Soft Tissue Neck W/contr In Process Unspecified. EDMS 07:05 CT Chest For PE Angio In Process Unspecified. EDMS 07:24 Salvador Harmon MD is Hospitalizing Provider. fernando 08:20 US Extremity Venous W Compression Kehinde In Process Unspecified. EDMS 08:44 ABG's: drawn from right radial artery, Philip's test done and positive, direct pressure eb2 held for 5 minutes, no bleeding noted, specimen analyzed, results given to provider, patient tolerated well. 14:26 No provider procedures requiring assistance completed. Patient admitted, IV remains in jd3 place. Administered Medications: 05:53 Drug: NS 0.9% 1000 ml Route: IV; Rate: 125 ml/hr; Site: left antecubital; tw5 10:00 Follow up: Response: No adverse reaction; IV Status: Infusion continued upon admission jd3 05:53 Drug: Xopenex (levalbuterol) 2.5 mg Route: Inhalation; tw5 05:53 Drug: AtroVENT (ipratropium) Aerosol 0.5 mg Route: Inhalation; tw5 05:53 Drug: SOLU-Medrol (methylPrednisoLONE) 125 mg Route: IVP; Site: left antecubital; tw5 07:00 Follow up: Response: No adverse reaction jd3 05:53 Drug: Decadron - Dexamethasone 10 mg Route: IVP; Site: left antecubital; tw5 06:45 Follow up: Response: No adverse reaction tw5 05:53 Drug: Xopenex (levalbuterol) 1.25 mg Route: Inhalation; tw5 07:30 Drug: Rocephin (cefTRIAXone) 1 grams Route: IV; Rate: per protocol; Site: left jd3 antecubital; 07:44 Follow up: Response: No adverse reaction; IV Status: Completed infusion; IV Intake: jd3 50ml ; given in 50 ML ns per verbal order by provider 07:44 Drug: Zithromax (azithromycin) 500 mg Route: IVPB; Infused Over: 1 hrs; Site: left jd3 antecubital; 08:45 Follow up: Response: No adverse reaction; IV Status: Completed infusion jd3 07:53 Drug: NS 0.9% 1000 ml Route: IV; Rate: 1 bolus; Site: left antecubital; em6 14:27 Follow up: Response: No adverse reaction; IV Status: Completed infusion jd3 07:53 Drug: NS 0.9% 1000 ml Route: IV; Rate: 1 bolus; Site: left antecubital; em6 14:27 Follow up: Response: No adverse reaction; IV Status: Completed infusion jd3 Medication: 06:06 VIS not applicable for this client. kd3 Intake: 07:44 IV: 50ml; Total: 50ml. jd3 Outcome: 07:12 Decision to Hospitalize by Provider. fernando 14:26 Admitted to Med/surg accompanied by tech, via wheelchair, room 219, with chart, Report jd3 called to Jess MORA 14:26 Condition: stable 14:26 Instructed on the need for admit. 14:29 Patient left the ED. jcarol Signatures: Dispatcher [employer] EDMS Silver Justice MD MD cha Ballard, Brenda, RN RN Hammad Hugo RN RN jd3 Alka Pritchard, R/T R/T 2 Hetal Yanez Tiffany [facility] Susan Antoine RN RN kd3 Lisa Guevara RN RN em6
--- NOTE | 2022-01-16 07:13 | EDPHYS ---
Physician Documentation [facility] Name: Varsha Huang Age: 56 yrs Sex: Female : 1965 Arrival Date: 01/16/2022 Time: 05:14 Bed 7 Private MD: ED Physician Silver Justice HPI: 01/16 05:40 This 56 yrs old Female presents to ER via Wheelchair with complaints of fernando Breathing Difficulty. 05:40 The patient has shortness of breath at rest, with light activity. Onset: The fernando symptoms/episode began/occurred 5 day(s) ago. Duration: The symptoms are continuous, and are steadily getting worse. The patient's shortness of breath has no apparent modifying factors. Associated signs and symptoms: The patient has no apparent associated signs or symptoms. Severity of symptoms: At their worst the symptoms were mild in the emergency department the symptoms are unchanged. The patient has not experienced similar symptoms in the past. 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 - Social history:: Smoking status: Patient reports the use of cigarette tobacco products, "I quiet about a week ago. I was smoking less than a pack a day.". ROS: 05:41 Constitutional: Negative for fever, chills, and weight loss, Eyes: Negative for injury, fernando pain, redness, and discharge, Neck: Negative for injury, pain, and swelling, Cardiovascular: Negative for chest pain, palpitations, and edema, Abdomen/GI: Negative for abdominal pain, nausea, vomiting, diarrhea, and constipation, Back: Negative for injury and pain, : Negative for injury, bleeding, discharge, and swelling, MS/Extremity: Negative for injury and deformity, Skin: Negative for injury, rash, and discoloration, Neuro: Negative for headache, weakness, numbness, tingling, and seizure. 05:41 ENT: Positive for rhinorrhea, sinus congestion, sore throat. 05:41 Respiratory: Positive for cough, shortness of breath, wheezing, expiratory. Exam: 05:41 Constitutional: This is a well developed, well nourished patient who is awake, alert, fernando and in no acute distress. Head/Face: Normocephalic, atraumatic. Eyes: Pupils equal round and reactive to light, extra-ocular motions intact. Lids and lashes normal. Conjunctiva and sclera are non-icteric and not injected. Cornea within normal limits. Periorbital areas with no swelling, redness, or edema. Neck: Trachea midline, no thyromegaly or masses palpated, and no cervical lymphadenopathy. Supple, full range of motion without nuchal rigidity, or vertebral point tenderness. No Meningismus. Chest/axilla: Normal chest wall appearance and motion. Nontender with no deformity. No lesions are appreciated. Cardiovascular: Regular rate and rhythm with a normal S1 and S2. No gallops, murmurs, or rubs. Normal PMI, no JVD. No pulse deficits. Abdomen/GI: Soft, non-tender, with normal bowel sounds. No distension or tympany. No guarding or rebound. No evidence of tenderness throughout. Back: No spinal tenderness. No costovertebral tenderness. Full range of motion. Skin: Warm, dry with normal turgor. Normal color with no rashes, no lesions, and no evidence of cellulitis. MS/ Extremity: Pulses equal, no cyanosis. Neurovascular intact. Full, normal range of motion. Neuro: Awake and alert, GCS 15, oriented to person, place, time, and situation. Cranial nerves II-XII grossly intact. Motor strength 5/5 in all extremities. Sensory grossly intact. Cerebellar exam normal. Normal gait. Psych: Awake, alert, with orientation to person, place and time. Behavior, mood, and affect are within normal limits. 05:41 ENT: Nose: no acute changes, Posterior pharynx: swelling, erythema, that is mild. 05:41 ECG was reviewed by the Attending Physician. 05:41 Respiratory: mild respiratory distress is noted, Respirations: labored breathing, that is mild, prolonged exhalation, tachypnea, that is mild, Breath sounds: decreased breath sounds, that are mild, are located in both bases, rhonchi, that are mild, are scattered, stridor, that is mild, + upper airway congestion. wheezing: expiratory is heard diffusely. Vital Signs: 05:22 BP 129 / 53; Pulse 60; Resp 18; Temp 97.5; Pulse Ox 93% on R/A; Weight 107.95 kg; tw5 Height 5 ft. 4 in. (162.56 cm); Pain 6/10; 06:05 BP 103 / 58; Pulse 63; Resp 19; Pulse Ox 95% on R/A; kd3 07:58 BP 104 / 64; Pulse 74; Resp 20; Pulse Ox 99% on R/A; em6 05:22 Body Mass Index 40.85 (107.95 kg, 162.56 cm) tw5 MDM: 05:32 Patient medically screened. [facility] 05:45 Differential diagnosis: bronchitis, Anxiety Reaction Bronchitis CHF exacerbation, fernando Chronic Obstructive Pulmonary Disease obstructed airway, bronchitis, flu, URI, pharyngitis, Myocardial Infarction pneumonia, pulmonary edema, reactive airway disease. Antibiotic administration: Rocephin and Zithromax given. The patient's Wells Deep Vein Thrombosis Score was calculated as follows: Total Score: 0-2 Pts- Low Risk. Differential Diagnosis: Bronchitis Influenza Upper Respiratory Infection Sinusitis Pharyngitis Allergic Rhinitis Asthma Exacerbation Viral Syndrome Pneumonia Tracheal Injury. The patient's pulmonary embolism risk score was calculated as follows: Total Score: 0-2 points. This patient was found to be at low risk for a pulmonary embolism by using the Well's assessment criteria. Immunization status: Influenza vaccine: Data reviewed: vital signs, nurses notes, lab test result(s), EKG, radiologic studies, CT scan, plain films. Data interpreted: monitor tech: rate is 60 beats/min, rhythm is normal sinus rhythm, regular, Pulse oximetry: on room air is 93 %. Test interpretation: by ED physician or midlevel provider: ECG, plain radiologic studies. Counseling: I had a detailed discussion with the patient and/or guardian regarding: the historical points, exam findings, and any diagnostic results supporting the discharge/admit diagnosis, lab results, radiology results, the need for outpatient follow up. 01/16 05:32 Order name: Basic Metabolic Panel; Complete Time: 06:20 fernando 01/16 05:32 Order name: CBC with Diff; Complete Time: 07:29 fernando 01/16 05:32 Order name: LFT's; Complete Time: 06:20 fernando 01/16 05:32 Order name: Magnesium; Complete Time: 06:20 [facility] 01/16 05:32 Order name: NT PRO-BNP; Complete Time: 06:20 [facility] 01/16 05:32 Order name: PT-INR; Complete Time: 06:20 [facility] 01/16 05:32 Order name: Troponin HS; Complete Time: 06:20 [facility] 01/16 05:32 Order name: SARS-COV-2 RT PCR (Document "Date of Onset" if Symptomatic); Complete Time: [facility] 01/16 05:32 Order name: Flu; Complete Time: 07:01 [facility] 01/16 05:32 Order name: D-Dimer; Complete Time: 06:20 [facility] 01/16 05:40 Order name: Blood Culture Adult (2) [facility] 01/16 05:40 Order name: Lactate; Complete Time: 07:23 [facility] 01/16 07:24 Order name: Manual Differential; Complete Time: 07:29 [facility] 01/16 07:32 Order name: ABG [facility] 01/16 05:32 Order name: XRAY Chest (1 view) [facility] 01/16 05:40 Order name: CT Soft Tissue Neck W/contr [facility] 01/16 06:07 Order name: US Extremity Venous W Compression Kehinde [facility] 01/16 06:07 Order name: CT Chest For PE Angio; Complete Time: 07:48 [facility] 01/16 07:38 Order name: Urine Dipstick-Ancillary; Complete Time: 07:45 [facility] 01/16 10:18 Order name: Lactate Sepsis 2 HR Follow-up [facility] 01/16 11:24 Order name: NT PRO-BNP [facility] 01/16 05:32 Order name: EKG; Complete Time: 05:33 [facility] 01/16 05:32 Order name: Cardiac monitoring; Complete Time: 05:33 [facility] 01/16 05:32 Order name: EKG - Nurse/Tech; Complete Time: 05:33 [facility] 01/16 05:32 Order name: IV Saline Lock; Complete Time: 05:33 [facility] 01/16 05:32 Order name: Labs collected and sent; Complete Time: 05:33 [facility] 01/16 05:32 Order name: O2 Per Protocol; Complete Time: 05:33 [facility] 01/16 05:32 Order name: O2 Sat Monitoring; Complete Time: 05:33 [facility] 01/16 05:32 Order name: Urine Dipstick-Ancillary (obtain specimen); Complete Time: 08:38 fernando EC:41 Rate is 66 beats/min. Rhythm is regular. QRS Mcgrew is Normal. DE interval is normal. QRS fernando interval is normal. QT interval is normal. No Q waves. T waves are Normal. No ST changes noted. Clinical impression: NSR w/ Non-specific ST/T Changes and No evidence of ischemia. Interpreted by me. Reviewed by me. Administered Medications: :53 Drug: NS 0.9% 1000 ml Route: IV; Rate: 125 ml/hr; Site: left antecubital; tw5 10:00 Follow up: Response: No adverse reaction; IV Status: Infusion continued upon admission jd3 05:53 Drug: Xopenex (levalbuterol) 2.5 mg Route: Inhalation; tw 05:53 Drug: AtroVENT (ipratropium) Aerosol 0.5 mg Route: Inhalation; 05:53 Drug: SOLU-Medrol (methylPrednisoLONE) 125 mg Route: IVP; Site: left antecubital; tw5 07:00 Follow up: Response: No adverse reaction 05:53 Drug: Decadron - Dexamethasone 10 mg Route: IVP; Site: left antecubital; tw5 06:45 Follow up: Response: No adverse reaction 05:53 Drug: Xopenex (levalbuterol) 1.25 mg Route: Inhalation; tw5 07:30 Drug: Rocephin (cefTRIAXone) 1 grams Route: IV; Rate: per protocol; Site: left j antecubital; 07:44 Follow up: Response: No adverse reaction; IV Status: Completed infusion; IV Intake: jd3 50ml ; given in 50 ML ns per verbal order by provider 07:44 Drug: Zithromax (azithromycin) 500 mg Route: IVPB; Infused Over: 1 hrs; Site: left jd3 antecubital; 08:45 Follow up: Response: No adverse reaction; IV Status: Completed infusion jd3 :53 Drug: NS 0.9% 1000 ml Route: IV; Rate: 1 bolus; Site: left antecubital; em6 14:27 Follow up: Response: No adverse reaction; IV Status: Completed infusion d3 :53 Drug: NS 0.9% 1000 ml Route: IV; Rate: 1 bolus; Site: left antecubital; em6 14:27 Follow up: Response: No adverse reaction; IV Status: Completed infusion jd3 Disposition Summary: 01/16/22 07:12 Hospitalization Ordered Condition: Stable fernando Problem: new fernando Symptoms: have improved fernando Bed/Room Type: Standard fernando Provider: Salvador Harmon(01/16/22 07:25) fernando Hospitalization Status: Inpatient Admission(01/16/22 07:31) fernando Location: Telemetry/MedSurg (Inpatient)(01/16/22 12:15) em1 Room Assignment: 219(01/16/22 12:15) em1 Diagnosis - Bronchopneumonia, unspecified organism fernando - Acute bronchospasm fernando - Dyspnea fernando - Tobacco abuse counseling fernando - Tobacco use fernando Forms: - Medication Reconciliation Form fernando - SBAR form fernando Signatures: Dispatcher [employer] EDMS Silver Justice MD MD cha Williams, Irene, RN RN iw Martinez, Eric em1 Hammad Ann RN RN jd3 Wood, Tiffany tw5 Lisa Guevara RN RN em6 Corrections: (The following items were deleted from the chart) 07:25 07:12 Ishaan Hussein fernando fernando 07:31 07:12 Observation fernando fernando 09:44 07:12 Telemetry/MedSurg (Inpatient) fernando iw 09:44 07:12 fernando iw 12:15 09:44 [facility] ER HOLD iw em1 12:15 09:44 ERHOLD- iw em1
[2022-01-16] MEDS ORDERED: AZITHROMYCIN 500 MG INJ IVPB ONE (07:22)
[2022-01-16] MEDS ORDERED: CEFTRIAXONE 1000 MG/VIAL ONE (07:22)
[2022-01-16 07:23] LABS: Blood Morphology Comment NOT SEEN (NOT SEEN); Platelet Estimate ADEQ
[2022-01-16] MEDS ORDERED: NA CHLORIDE 0.9% 250 ML ONE (07:23)
[2022-01-16] MEDS ORDERED: NA CHLORIDE 0.9% 50 ML ONE (07:23)
[2022-01-16 07:38] LABS: Urine Blood Trace-intact (Negative); Urine Glucose Negative (Negative); Urine Protein Negative (Negative)
--- NOTE | 2022-01-16 07:46 | RAD REPORT ---
EXAM DESCRIPTION: CT - Chest For Pe Angio - 01/16/2022 7:04 am CLINICAL HISTORY: sob COMPARISON: 2012 TECHNIQUE: Dynamically enhanced axial 3 mm thick images of the chest were obtained during administra tion of <100> mL Isovue 370 IV contrast. Coronal and oblique reconstruction images were generated and reviewed. Exam utilizes a protocol for optimal evaluation of pulmonary arterial tree. Maximum intensity projections 3D imaging was utilized All CT scans are performed using dose optimization technique as appropriate and may include automated exposure control or mA/KV adjustment according to patient size. FINDINGS: Suboptimal opacification the pulmonary arteries. A gross pulmonary embolus is not seen. A thoracic aortic aneurysm is not noted. A pleural effusion is not seen. A pericardial effusion is not seen. A lung consolidation is not present. IMPRESSION: No gross evidence for a pulmonary embolism
--- NOTE | 2022-01-16 07:51 | RAD REPORT ---
EXAM DESCRIPTION: CT - Soft Tissue Neck W/Contr - 01/16/2022 7:03 am CLINICAL HISTORY: Stridor COMPARISON: None. TECHNIQUE: Computed axial tomography of the neck was obtained. 50 cc Isovue 300 was administered in travenously. Coronal and sagittal reconstruction was performed. All CT scans are performed using dose optimization technique as appropriate and may include automated exposure control or mA/KV adjustment according to patient size. FINDINGS: Images of pharynx are limited secondary to artifact presumably from swallowing or coughin g during the imaging. The larynx and subglottic trachea appear unremarkable The parotid, submandibular and thyroid glands appear unremarkable. No lymphadenopathy is seen No fluid within the sinuses/mastoids. IMPRESSION: Limited evaluation of the pharynx Otherwise unremarkable examination
[2022-01-16] MEDS ORDERED: NA CHLORIDE 0.9% 2,000 ML ONE (07:53)
[2022-01-16 08:41] LABS: Arterial Blood Carboxyhemoglob 1.3 % (0-1.5); Blood Gas Oxyhemoglobin 92.7 % (94-97); Blood O2 Saturation 94.9 % (92-98.5)
--- NOTE | 2022-01-16 09:04 | RAD REPORT ---
EXAM DESCRIPTION: USExtrem Venous W Compress Bil01/16/2022 8:18 am CLINICAL HISTORY: Leg pain COMPARISON: none FINDINGS: The common femoral, superficial femoral, popliteal and posterior tibial veins bilaterally are compressible and demonstrate augmentation. Doppler demonstrates good flow. Grayscale, color and spectral analysis performed on all vessels IMPRESSION: No evidence of deep venous thrombosis involving either lower extremity.
--- NOTE | 2022-01-16 10:13 | P.HP ---
Certification for Inpatient Patient admitted to: Inpatient With expected LOS: >2 Midnights Patient will require the following post-hospital care: None Practitioner: I am a practitioner with admitting privileges, knowledge of patient current condition, hospital course, and medical plan of care. Services: Services provided to patient in accordance with Admission requirements found in Title 42 Section 412.3 of the Code of Federal Regulations Patient History Date of Service: 01/16/22 Reason for admission: Bronchopneumonia History of Present Illness: Ms. Varsha Huang is a 56 year old female who has a past medical history of depression and peripheral neuropathy who presents to the [facility] Emergency Department for shortness of breath. She reports that, over the last 4-5 days, she has been experiencing progressively worsening shortness of breath. She states that this has been associated with a fever up to 100.5 F. She denies any obvious inciting or alleviating factors. She tested herself at home 3 days ago for COVID-19, which was negative. At that time, she notified her primary care provider, who gave her prescriptions for an inhaler and steroids. However, her symptoms continue to worsen. On review of systems, she denies any chills, headaches, dizziness, syncope, chest pain, palpitations, wheezing, cough, abdominal pain, nausea/vomiting, diarrhea, constipation, hematochezia, melena, dysuria, hematuria, myalgia, or any other symptoms. She presented to the Emergency Department for further evaluation. Upon presentation, her vital signs were stable. Her laboratory studies were notable for eosinophila, a d-dimer of 1661, and a lactate of 3.4. Her ABG was notable for a PO2 of 73.6 on room air. Blood cultures x 2 were obtained. EKG revealed normal sinus rhythm without STEMI criteria. Chest x-ray revealed, "bilateral parahilar peribronchial interstitial and mild bibasilar interstitial opacities. Findings could be seen with bronchitis, reactive airways disease, or developing bronchopneumonia." CT neck revealed, "limited evaluation of the pharynx. Otherwise unremarkable examination." CT chest angiogram revealed, "no gross evidence for a pulmonary embolism." Bilateral lower extremity Doppler revealed, "no evidence of deep venous thrombosis involving either lower extremity." In the Emergency Department, she was given levalbuterol, ipratropium, methylprednisolone, dexamethasone, ceftriaxone, azithromycin, and 3 L normal saline. She was admitted to the General Internal Medicine service for further evaluation. Allergies Sulfa (Sulfonamide Antibiotics) Allergy (Verified 01/16/22 12:43) Anaphylaxis hydromorphone [From Dilaudid] Adverse Reaction (Verified 01/16/22 15:58) Shortness of breath Home medications list reviewed: Yes Home Medications: Fluoxetine HCl [Prozac] 20 mg PO DAILY 01/16/22 Gabapentin 300 mg PO PRN 01/16/22 - Past Medical/Surgical History Diabetic: No -: anxiety -: depression -: cholesystectomy -: Tubal Ligation -: Uterine Ablation -: Ankle sx -: Back sx - Family History Mother -: Heart disease, Other (see notes) Notes: palpitations - Social History Smoking Status: Former smoker Alcohol use: No CD- Drugs: No Caffeine use: No Review of Systems General: Fever Eyes: Unremarkable ENT: Unremarkable Respiratory: Cough, Shortness of Breath Cardiovascular: Unremarkable Gastrointestinal: Unremarkable Genitourinary: Unremarkable Musculoskeletal: Unremarkable Integumentary: Unremarkable Neurological: Unremarkable Physical Examination - Vital Signs Temperature: 97.5 F Blood Pressure: 104/64 Pulse: 74 Respirations: 20 Pulse Ox (%): 98 - Physical Exam General: Alert, In no apparent distress HEENT: Atraumatic, Mucous membr. moist/pink, EOMI, Sclerae nonicteric Neck: Supple, Without JVD or thyroid abnormality Respiratory: Diminished, Rhonchi/gurgles, Other (coarse breath sounds) Cardiovascular: Regular rate/rhythm, Normal S1 S2, No gallops, No rubs, No murmurs Gastrointestinal: Normal bowel sounds, No tenderness, No rebound, No guarding Musculoskeletal: No clubbing, No tenderness Integumentary: No rashes Neurological: Normal speech, Normal tone, Normal affect - Studies Laboratory Data (last 24 hrs) 01/16/22 05:27: PT 12.2, INR 1.11 01/16/22 05:27: WBC 9.2, Hgb 13.6, Hct 40.8, Plt Count 262 01/16/22 05:27: Sodium 142, Potassium 3.7, BUN 12, Creatinine 0.80, Glucose 129 H, Magnesium 2.0, Total Bilirubin 0.2, AST 9 L, ALT 23, Alkaline Phosphatase 99 Microbiology Data (last 24 hrs): 01/16/22 05:35 Nasopharnyx Influenza Type A Antigen Screen - Final 01/16/22 05:35 Nasopharnyx Influenza Type B Antigen Screen - Final Assessment and Plan - Plan # Severe Sepsis likely secondary to Community-Acquired Bronchopneumonia She meets SIRS criteria based on a reported temperature > 100.4 and a RR > 20 breaths/min (per Dr. Justice presenting RR was in mid-20s). The suspected source is bronchopneumonia. Severe sepsis is suspected due to concern for tissue hypoperfusion/organ dysfunction based on lactic acid > 2 mmol/L. - Sepsis order set was initiated in ED - Lactate trend was [text], trend - Blood cultures drawn before antibiotics - Broad spectrum antibiotics started: Ceftriaxone + Azithromycin - In regards to fluids: - 30 mL/kg of IV Normal Saline was given based on patient's actual body weight - Chest x-ray = "bilateral parahilar peribronchial interstitial and mild bibasilar interstitial opacities. Findings could be seen with bronchitis, reactive airways disease, or developing bronchopneumonia." - CT neck = "limited evaluation of the pharynx. Otherwise unremarkable examination." - Ordered procalcitonin # Acute Hypoxemic Respiratory Failure suspect secondary to Bronchopneumonia and Acute COPD/Asthma Exacerbation # Elevated D-Dimer # Peripheral Eosinophilia She denies history of reactive airways disease, but her peripheral eosinophilia is consistent with underlying asthma +/- COPD. - Evaluation thus far: - D-Dimer = 1661 - Procalcitonin = pending - ABG = pH 7.42, PCO2 38.7, PO2 73.6 - Chest x-ray = "bilateral parahilar peribronchial interstitial and mild bibasilar interstitial opacities. Findings could be seen with bronchitis, reactive airways disease, or developing bronchopneumonia." - CT chest angiogram = "no gross evidence for a pulmonary embolism." - Bilateral lower extremity Doppler = "no evidence of deep venous thrombosis involving either lower extremity." - Consulted Pulmonary Medicine - recommendations appreciated - Bronchodilators and steroids per Pulm - Consulted Respiratory Therapy - Supplemental oxygen to maintain SpO2 > 92% - PRN benzonatate, guaifenesin - Encouraged incentive spirometry # Depression # Peripheral Neuropathy - Continue home medications Salvador Harmon MD Discharge Plan: Home Plan to discharge in: Greater than 2 days - Advance Directives Does patient have a Living Will: No Does patient have a Durable POA for Healthcare: No - Code Status/Comfort Care Code Status Assessed: Yes Code Status: Full Code Critical Care: No
[2022-01-16] MEDS ORDERED: ACETAMINOPHEN 500 MG TAB PO PRN (10:26)
--- NOTE | 2022-01-16 10:36 | RAD REPORT ---
EXAM DESCRIPTION: RAD - Chest Single View - 01/16/2022 6:00 am CLINICAL HISTORY: DYSPNEA COMPARISON: None. FINDINGS: Single frontal radiograph view of the chest. Cardiomediastinal silhouette: Normal size and contour. Lungs: Low lung volumes. No pneumothorax or large effusion. Bilateral parahilar peribronchial interst itial opacities and mild bibasilar interstitial opacities. Bones: No acute osseous abnormality. Upper abdomen: No abnormality identified. IMPRESSION: 1. Bilateral parahilar peribronchial interstitial and mild bibasilar interstitial opacit ies. Findings could be seen with bronchitis, reactive airways disease, or developing bronchopneumonia . Continued radiographic follow-up to resolution recommended. Low lung volumes. Electronically signed by: Tong Quinn 01/16/2022 6:51 AM CDT Due to temporary technical issues with the PACS/Fluency reporting system, reports are being signed by the in house radiologists without review as a courtesy to insure prompt reporting. The interpreting radiologist is fully responsible for the content of the report.
[2022-01-16 12:41] VITALS: BMI 40.8
[2022-01-16] MEDS: ARFORMOTEROL TARTRATE 15 MCG/2 ML VIAL.NEB NEB SCH ×2 (14:40→20:30)
[2022-01-16] MEDS: DIPHENHYDRAMINE 25 MG TAB/CAP PO PRN ×2 (15:54→21:13)
[2022-01-16] MEDS: predniSONE 20 MG TAB PO SCH ×2 (15:54→21:13)
--- NOTE | 2022-01-16 16:23 | P.CNS ---
Date of Consult: 01/16/22 Reason for Consult: Shortness of breath possible pneumonia Chief Complaint: Shortness of breath History of Present Illness: Patient is 56 years of age has been sick for about a week initially she had some fever tested negative for COVID later on developed some chest pressure chest constriction more shortness of breath a week ago she also had some fever patient is a heavy active smoker no prior history of obstructive airways disease feels a lot better no prior history of coronary artery disease Allergies Sulfa (Sulfonamide Antibiotics) Allergy (Verified 01/16/22 12:43) Anaphylaxis hydromorphone [From Dilaudid] Adverse Reaction (Verified 01/16/22 15:58) Shortness of breath Home Medications: Fluoxetine HCl [Prozac] 20 mg PO DAILY 01/16/22 Gabapentin 300 mg PO PRN 01/16/22 - Past Medical/Surgical History Diabetic: No -: anxiety -: depression -: cholesystectomy -: Tubal Ligation -: Uterine Ablation -: Ankle sx -: Back sx - Family History Mother Medical History: Heart disease, Lung disease, Stroke Notes: palpitations - Social History Smoking Status: Current every day smoker Alcohol use: No CD- Drugs: No Caffeine use: No Place of Residence: Home Review of Systems 10-point ROS is otherwise unremarkable Physical Examination Temp Pulse Resp BP Pulse Ox 98 F 84 20 103/79 100 01/16/22 12:00 01/16/22 12:00 01/16/22 12:00 01/16/22 12:00 01/16/22 12:00 General: Alert, In no apparent distress, Oriented x3 Respiratory: Expiratory wheezes Cardiovascular: No edema, Regular rate/rhythm, Normal S1 S2 Gastrointestinal: Normal bowel sounds, Soft and benign Musculoskeletal: No clubbing, No swelling Laboratory Data (last 24 hrs) 01/16/22 05:27: PT 12.2, INR 1.11 01/16/22 05:27: WBC 9.2, Hgb 13.6, Hct 40.8, Plt Count 262 01/16/22 05:27: Sodium 142, Potassium 3.7, BUN 12, Creatinine 0.80, Glucose 129 H, Magnesium 2.0, Total Bilirubin 0.2, AST 9 L, ALT 23, Alkaline Phosphatase 99 - Problems (1) COPD exacerbation Current Visit: Yes Status: Acute Plan: Patient is 56 years of age been sick for about a week with cough congestion shortness of breath a slight fever and is a heavy smoker I suspect that she has underlying obstructive airways disease there is no evidence of pneumonia or pulmonary embolism on CT pulmonary angiogram evidence of active sepsis is coughing up some phlegm commend discharge tomorrow on prednisone 10 mg twice a day for 7 days in addition to her long-acting bronchodilator Advair or Symbicort for now patient has been counseled not to smoke add some Zithromax follow-up with me in 2 weeks with outpatient pulmonary function testing her blood gases are normal have started her on some steroids and bronchodilators while she is in the hospital
[2022-01-17 03:49] LABS: Absolute Lymphocytes (CBC) 2.2 K/uL (0.7-4.9); Hematocrit 36.2 % (36.0-45.0); Lymphocytes % 12.8 % (15.3-44.8); MCV 85.3 fL (80-100); MPV 7.6 fL (7.6-11.3); RBC Red Blood Cell Count 4.25 M/uL (3.86-4.86)
[2022-01-17 04:08] LABS: Albumin 2.9 g/dL (3.4-5.0); Bilirubin Total 0.1 mg/dL (0.2-1.0); Phosphorus 2.2 mg/dL (2.5-4.9); Potassium 4.1 mmol/L (3.5-5.1); Protein, Total 6.8 g/dL (6.4-8.2)
[2022-01-17] MEDS: ARFORMOTEROL TARTRATE 15 MCG/2 ML VIAL.NEB NEB SCH ×2 (07:51→19:50)
[2022-01-17] MEDS: IPRATROPIUM BROM 0.5MG/2.5ML IH SCH ×4 (07:58→19:50)
[2022-01-17] MEDS: ALBUTEROL 2.5 MG/3 ML NEB SOL NEB SCH ×4 (07:58→19:50)
[2022-01-17] MEDS: DIPHENHYDRAMINE 25 MG TAB/CAP PO PRN ×2 (10:34→21:02)
[2022-01-17] MEDS: predniSONE 20 MG TAB PO SCH ×2 (10:34→21:02)
[2022-01-17] MEDS: CEFTRIAXONE 1,000 MG in NA CHLORIDE 0.9% 50 ML IVPB SCH (10:36)
[2022-01-17] MEDS: ENOXAPARIN 40 MG/0.4 ML SQ SCH (10:36)
[2022-01-17] MEDS: AZITHROMYCIN IV 500 MG in NA CHLORIDE 0.9% 250 ML IVPB SCH (10:42)
--- NOTE | 2022-01-17 16:18 | P.PN ---
Subjective Date of Service: 01/17/22 Chief Complaint: Bronchopneumonia No acute events overnight. She reports that she continues to have shortness of breath and wheezing. She feels that her shortness of breath is only slightly improved compared to yesterday. Review of Systems General: Unremarkable Eyes: Unremarkable ENT: Unremarkable Respiratory: Cough, Shortness of Breath, Wheezing Cardiovascular: Unremarkable Gastrointestinal: Unremarkable Genitourinary: Unremarkable Musculoskeletal: Unremarkable Integumentary: Unremarkable Neurological: Unremarkable Lymphatics: Unremarkable Physical Examination - Vital Signs Temperature: 97.2 F Blood Pressure: 109/59 Pulse: 75 Respirations: 16 Pulse Ox (%): 100 - Physical Exam General: Alert, In no apparent distress, Oriented x3 HEENT: Atraumatic, Mucous membr. moist/pink, EOMI, Sclerae nonicteric Neck: Supple, JVD not distended Respiratory: Diminished, Expiratory wheezes (faint), Rhonchi/gurgles (coarse breath sounds) Cardiovascular: Regular rate/rhythm, Normal S1 S2, No gallops, No rubs, No murmurs Gastrointestinal: Normal bowel sounds, Soft and benign, No tenderness, No rebound, No guarding Musculoskeletal: No clubbing Integumentary: No rashes Neurological: Normal speech, Normal affect - Studies Medications List Reviewed: Yes Assessment And Plan - Plan # Severe Sepsis likely secondary to Community-Acquired Bronchopneumonia # Leukocytosis - likely combination of Infection and Steroid-Induced She meets SIRS criteria based on a reported temperature > 100.4 F and a RR > 20 breaths/min (per Dr. Justice presenting RR was in mid-20s). The suspected source is bronchopneumonia. Severe sepsis is suspected due to concern for tissue hypoperfusion/organ dysfunction based on lactic acid > 2 mmol/L. - Sepsis order set was initiated in ED - Lactate trend was 3.4 -> 1.9 - Blood cultures drawn before antibiotics - Broad spectrum antibiotics started: Ceftriaxone + Azithromycin - In regards to fluids: - 30 mL/kg of IV Normal Saline was given based on patient's actual body weight - Chest x-ray = "bilateral parahilar peribronchial interstitial and mild bibasil ar interstitial opacities. Findings could be seen with bronchitis, reactive airways disease, or developing bronchopneumonia." - CT neck = "limited evaluation of the pharynx. Otherwise unremarkable examination." - Procalcitonin = <0.05 # Acute Hypoxemic Respiratory Failure suspect secondary to Bronchopneumonia and Acute COPD/Asthma Exacerbation # Elevated D-Dimer # Peripheral Eosinophilia She denies history of reactive airways disease, but her peripheral eosinophilia is consistent with underlying asthma +/- COPD. - Evaluation thus far: - D-Dimer = 1661 - Procalcitonin = <0.05 - ABG = pH 7.42, PCO2 38.7, PO2 73.6 - Chest x-ray = "bilateral parahilar peribronchial interstitial and mild bibasilar interstitial opacities. Findings could be seen with bronchitis, reactive airways disease, or developing bronchopneumonia." - CT chest angiogram = "no gross evidence for a pulmonary embolism." - Bilateral lower extremity Doppler = "no evidence of deep venous thrombosis involving either lower extremity." - Consulted Pulmonary Medicine - recommendations appreciated - Bronchodilators and steroids per Pulm - Consulted Respiratory Therapy - Supplemental oxygen to maintain SpO2 > 92% - PRN benzonatate, guaifenesin - Encouraged incentive spirometry # Depression # Peripheral Neuropathy - Continue home medications Salvador Harmon MD Discharge Plan: Home Plan to discharge in: 24 Hours - Code Status/Comfort Care Code Status Assessed: Yes Code Status: Full Code Critical Care: No
[2022-01-18 00:22] VITALS: O2SAT 97
[2022-01-18 03:54] LABS: Absolute Lymphocytes (CBC) 2.2 K/uL (0.7-4.9); Lymphocytes % 15.7 % (15.3-44.8); MCV 85.1 fL (80-100); MPV 7.5 fL (7.6-11.3); RBC Red Blood Cell Count 4.11 M/uL (3.86-4.86)
[2022-01-18 04:08] LABS: Albumin 3.1 g/dL (3.4-5.0); Bilirubin Total 0.1 mg/dL (0.2-1.0); Magnesium 2.1 mg/dL (1.8-2.4); Phosphorus 2.7 mg/dL (2.5-4.9); Potassium 4.5 mmol/L (3.5-5.1); Protein, Total 6.7 g/dL (6.4-8.2)
[2022-01-18] MEDS: ARFORMOTEROL TARTRATE 15 MCG/2 ML VIAL.NEB NEB SCH (08:00)
[2022-01-18] MEDS: IPRATROPIUM BROM 0.5MG/2.5ML IH SCH (08:00)
[2022-01-18] MEDS: ALBUTEROL 2.5 MG/3 ML NEB SOL NEB SCH (08:00)
[2022-01-18] MEDS: predniSONE 20 MG TAB PO SCH (08:56)
[2022-01-18] MEDS: AZITHROMYCIN IV 500 MG in NA CHLORIDE 0.9% 250 ML IVPB SCH (08:56)
[2022-01-18] MEDS: ENOXAPARIN 40 MG/0.4 ML SQ SCH (08:56)
[2022-01-18] MEDS: CEFTRIAXONE 1,000 MG in NA CHLORIDE 0.9% 50 ML IVPB SCH (08:56)
[2022-01-18] MEDS: DIPHENHYDRAMINE 25 MG TAB/CAP PO PRN (08:56)
[2022-01-18 10:29] VITALS: BP 109/60; TEMP 97.1
--- NOTE | 2022-01-18 13:51 | EKG ---
Test Date: 2022-01-16 Test Time: 05:19:47 Business Intelligence Developer: BAUDILIO MEASUREMENT RESULTS: Intervals: Rate: 66 NV: 146 QRSD: 84 QT: 414 QTc: 434 [place]: P: 44 NV: 146 QRS: 28 T: 30 INTERPRETIVE STATEMENTS: Normal sinus rhythm Possible Anterior infarct, age undetermined Abnormal ECG Compared to ECG 07/02/2018 09:27:32 Myocardial infarct finding now present Sinus bradycardia no longer present Electronically Signed On 01-18-22 13:47:42 CDT by Pankaj Cox
--- NOTE | 2022-01-21 10:35 | P.DS ---
Discharge Date: 01/18/22 Disposition: ROUTINE DISCHARGE Discharge Condition: GOOD Reason for Admission: Bronchopneumonia Consultations: Pulmonary Brief History of Present Illness: Ms. Varsha Huang is a 56 year old female who has a past medical history of depression and peripheral neuropathy who presents to the [facility] Emergency Department for shortness of breath. She reports that, over the last 4-5 days, she has been experiencing progressively worsening shortness of breath. She states that this has been associated with a fever up to 100.5 F. She denies any obvious inciting or alleviating factors. She tested herself at home 3 days ago for COVID-19, which was negative. At that time, she notified her primary care provider, who gave her prescriptions for an inhaler and steroids. However, her symptoms continue to worsen. On review of systems, she denies any chills, headaches, dizziness, syncope, chest pain, palpitations, wheezing, cough, abdominal pain, nausea/vomiting, diarrhea, constipation, hematochezia, melena, dysuria, hematuria, myalgia, or any other symptoms. She presented to the Emergency Department for further evaluation. Upon presentation, her vital signs were stable. Her laboratory studies were notable for eosinophila, a d-dimer of 1661, and a lactate of 3.4. Her ABG was notable for a PO2 of 73.6 on room air. Blood cultures x 2 were obtained. EKG revealed normal sinus rhythm without STEMI criteria. Chest x-ray revealed, "bilateral parahilar peribronchial interstitial and mild bibasilar interstitial opacities. Findings could be seen with bronchitis, reactive airways disease, or developing bronchopneumonia." CT neck revealed, "limited evaluation of the pharynx. Otherwise unremarkable examination." CT chest angiogram revealed, "no gross evidence for a pulmonary embolism." Bilateral lower extremity Doppler revealed, "no evidence of deep venous thrombosis involving either lower extremity." In the Emergency Department, she was given levalbuterol, ipratropium, methylprednisolone, dexamethasone, ceftriaxone, azithromycin, and 3 L normal saline. She was admitted to the General Internal Medicine service for further evaluation. Hospital Course: Patient has done well during hospital stay. Patient clinical symptoms have improved. At this time, patient is stable for discharge with outpatient follow- up. Vital Signs/Physical Exam: Temp Pulse Resp BP Pulse Ox 97.1 F 59 20 109/60 99 01/18/22 08:00 01/18/22 08:00 01/18/22 08:00 01/18/22 08:00 01/18/22 08:00 General: Alert, In no apparent distress, Oriented x3 Laboratory Data at Discharge: WBC 14.0 K/uL (4.3-10.9) H D 01/18/22 02:57 Hgb 11.7 g/dL (12.0-15.0) L 01/18/22 02:57 Hct 35.0 % (36.0-45.0) L 01/18/22 02:57 Plt Count 215 K/uL (152-406) 01/18/22 02:57 PT 12.2 SECONDS (9.5-12.5) 01/16/22 05:27 INR 1.11 01/16/22 05:27 Sodium 141 mmol/L (136-145) 01/18/22 02:57 Potassium 4.5 mmol/L (3.5-5.1) 01/18/22 02:57 BUN 15 mg/dL (7-18) 01/18/22 02:57 Creatinine 0.71 mg/dL (0.55-1.3) 01/18/22 02:57 Glucose 194 mg/dL (74-106) H 01/18/22 02:57 Phosphorus 2.7 mg/dL (2.5-4.9) 01/18/22 02:57 Magnesium 2.1 mg/dL (1.8-2.4) 01/18/22 02:57 Total Bilirubin 0.1 mg/dL (0.2-1.0) L 01/18/22 02:57 AST 8 U/L (15-37) L 01/18/22 02:57 ALT 21 U/L (12-78) 01/18/22 02:57 Alkaline Phosphatase 90 U/L (45-117) 01/18/22 02:57 Home Medications: Fluoxetine HCl [Prozac] 20 mg PO DAILY 01/16/22 Gabapentin 300 mg PO PRN 01/16/22 Albuterol Neb [Proventil 0.083% Neb Soln] 2.5 mg NEB [id number] #60 amp 01/18/22 Arformoterol Tartrate [Brovana] 15 mcg NEB BIDRESP #30 vial.neb 01/18/22 Azithromycin Tab [Zithromax*] 250 mg PO DAILY #5 tab 01/18/22 Budesonide/Formoterol Fumarate [Symbicort 160-4.5 Mcg Inhaler] 1 puff IH BID #1 hfa.aer.ad 01/18/22 Cefdinir [Omnicef] 300 mg PO BID #10 capsule 01/18/22 Ipratropium Neb [Atrovent*] 0.5 mg IH [id number] #60 amp 01/18/22 predniSONE [Prednisone*] 20 mg PO BID #11 tab 01/18/22 New Medications: Ipratropium Neb [Atrovent*] 0.5 mg IH [id number] #60 amp Arformoterol Tartrate [Brovana] 15 mcg NEB BIDRESP #30 vial.neb Cefdinir [Omnicef] 300 mg PO BID #10 capsule predniSONE [Prednisone*] 20 mg PO BID #11 tab Albuterol Neb [Proventil 0.083% Neb Soln] 2.5 mg NEB [id number] #60 amp Budesonide/Formoterol Fumarate [Symbicort 160-4.5 Mcg Inhaler] 1 puff IH BID #1 hfa.aer.ad Azithromycin Tab [Zithromax*] 250 mg PO DAILY #5 tab Physician Discharge Instructions: -DC IV and DC home -Follow-up with PCP in 1 to 2 weeks -Follow-up with pulmonary in 1 to 2 weeks; patient will need pulmonary function testing -Please call Dr. Cadet at [phone] if any questions regarding hospital stay -Please call nursing station at [phone] if any nursing or medication questions -Return to the emergency room if symptoms worsen Diet: AHA Activity: Fall precautions Followup: Ishaan Hussein MD [ACTIVE - CAN ADMIT] - NONE,NONE [Primary Care Provider] - Time spent managing pt's care (in minutes): 35
== END 2022-01-18 13:35 | disposition home or self-care (01) | DRG 871 ==
LOC: ER 05:13 → ERHOLD 09:22 → 2ND 14:14
PROVIDERS: ADMIT Internal Medicine; ATTEND Internal Medicine
DX: A41.9 Sepsis, unspecified organism (principal); J18.0 Bronchopneumonia, unspecified organism; J96.01 Acute respiratory failure with hypoxia; J45.901 Unspecified asthma with (acute) exacerbation; J44.1 Chronic obstructive pulmonary disease with (acute) exacerbation; R65.20 Severe sepsis without septic shock; F32.A Depression, unspecified; D72.10 Eosinophilia, unspecified; G62.9 Polyneuropathy, unspecified; Z88.2 Allergy status to sulfonamides; F17.210 Nicotine dependence, cigarettes, uncomplicated; Z20.822 Contact with and (suspected) exposure to COVID-19
CPT/HCPCS: 36415; 70491; 71045; 71275; 80048; 80053; 80076; 81003; 82805; 83605; 83735; 83880; 84100; 84145; 84484; 85025; 85379; 85610; 87040; 87804; 93005; 93970; 94010; 96361; 96365; 96375; 99285; J0456; J1100; J1650; J2930; J7030; J7050; J7512; J7605; Q9967; U0003

== ENCOUNTER 2024-03-12 23:00 | Inpatient (IN) | payer BC ==
[2024-03-12] MEDS ORDERED: ALBUTEROL 2.5 MG/3 ML NEB SOL ONE (23:27)
[2024-03-12] MEDS ORDERED: METHYLPREDNISOLONE 125 MG INJ ONE (23:27)
[2024-03-12] MEDS ORDERED: IPRATROPIUM BROM 0.5MG/2.5ML ONE (23:27)
[2024-03-12] MEDS ORDERED: ASPIRIN 81 MG CHEWABLE TABLET ONE (23:27)
[2024-03-12 23:48] LABS: Absolute Basophils 0.1 K/uL (0-0.5); Absolute Eosinophils 0.5 K/uL (0-0.5); Absolute Lymphocytes (CBC) 4.1 K/uL (0.7-4.9); Absolute Monocytes 0.7 K/uL (0.1-1.3); Absolute Neutrophil 5.8 K/uL (1.8-8.0); Basophils % 0.7 % (0-1.3); Eosinophils % 4.2 % (0-4.4); Hematocrit 42.1 % (36.0-45.0); Hemoglobin 13.6 g/dL (12.0-15.0); Lymphocytes % 36.7 % (15.3-44.8); MCH 27.9 pg (27.0-35.0); MCHC 32.4 g/dL (32.0-36.0); MCV 86.3 fL (80-100); MPV 7.7 fL (7.6-11.3); Monocytes % 5.9 % (3.3-12.3); Neutrophils % 52.5 % (41.7-73.7); Platelets 246 thou/uL (152-406); RBC Red Blood Cell Count 4.88 M/uL (3.86-4.86); Red Cell Distribution Width 13.3 % (12.1-15.2)
[2024-03-12 23:56] LABS: D-Dimer 0.495 FEUug/mL (0-0.500); PT Prothrombin Time 12.9 SECONDS (9.4-12.5); Protime INR 1.16
[2024-03-13 00:07] LABS: ALT/SGPT 27 U/L (13-56); Albumin 3.5 g/dL (3.4-5.0); Albumin/Globulin Ratio 0.8 (1.1-1.8); Alkaline Phosphatase 123 U/L (45-117); Anion Gap 8.6 mEq/L (5.0-15.0); BUN Blood Urea Nitrogen 13 mg/dL (7-18); Bicarbonate 27 mEq/L (21-32); Bilirubin Total 0.5 mg/dL (0.2-1.0); Globulin 4.3 g/dL (2.3-3.5); Glomerular Filtration Rate 102 ml/min (=/>90); Glucose Level 110 mg/dL (74-106); NT PRO-BNP 22 pg/mL (<125); Protein, Total 7.8 g/dL (6.4-8.2); SARS-CoV-2 Antigen CONTROL BLUE LINE VIS/BG OK; SARS-CoV-2 Antigen Rapid Res Negative (Negative); Sodium Level 138 mEq/L (136-145); Troponin High Sensitivity 3.5 pg/mL (<58.9)
[2024-03-13 00:09] LABS: AST/SGOT 15 U/L (15-37); Bilirubin Direct < 0.2 mg/dL (0-0.2); Bilirubin Indirect, Calculated 0.3 mg/dL (0.2-0.8); Potassium 3.6 mEq/L (3.5-5.1)
[2024-03-13] MEDS ORDERED: LEVALBUTEROL 1.25 MG/3 ML NEB ONE (00:55)
--- NOTE | 2024-03-13 02:00 | EDPHYS ---
Physician Documentation [facility] Name: Varsha Huang Age: 58 yrs Sex: Female : 1965 Arrival Date: 03/12/2024 Time: 23:00 Bed 5 Private MD: ED Physician Mitch Feliz HPI: 03/12 23:25 This 58 yrs old Female presents to ER via Ambulatory with complaints of Breathing cp Difficulty. 23:25 The patient has shortness of breath at rest. Onset: The symptoms/episode began/occurred cp 1 week(s) ago. Duration: The symptoms are continuous, and are steadily getting worse. 23:25 Associated signs and symptoms: Pertinent positives: chest pain, Pertinent negatives: cp fever. Severity of symptoms: in the emergency department the symptoms are unchanged. The patient has been recently seen by a physician: the patient's primary care provider, with similar presenting complaints, prescribed Levaquin and oral steroids. Historical: - Allergies: 23:16 Sulfa (Sulfonamide Antibiotics); al5 23:16 Dilaudid; al5 - PMHx: 23:16 ovary cyst right; UTI; al5 - PSHx: 23:16 Cholecystectomy; tubal ligation; hernia repair; al5 - Immunization history:: Adult Immunizations up to date. - Infectious Disease History:: Denies. - Social history:: Smoking status: Patient/guardian denies using tobacco. ROS: 23:30 Constitutional: Negative for fever, poor PO intake, cp 23:30 Eyes: Negative for injury, pain, redness, and discharge, cp 23:30 ENT: Negative for drainage from ear(s), ear pain, sore throat, difficulty swallowing, difficulty handling secretions, 23:30 Cardiovascular: Positive for chest pain, with cough, Negative for edema, palpitations, 23:30 Respiratory: Positive for cough, "sounds productive", shortness of breath, wheezing, 23:30 Abdomen/GI: Negative for abdominal pain, nausea, vomiting, and diarrhea, 23:30 Skin: Negative for cellulitis, rash, 23:30 Neuro: Negative for altered mental status, dizziness, headache, loss of consciousness, syncope, weakness, 23:30 All other systems are negative, Exam: 23:28 ECG was reviewed by the Attending Physician. cp 23:35 Constitutional: The patient appears alert, awake, non-diaphoretic, non-toxic, well cp developed, well nourished, obese, uncomfortable, 23:35 Head/Face: Normocephalic, atraumatic. cp 23:35 Eyes: Periorbital structures: appear normal, Conjunctiva: normal, no exudate, no injection, Sclera: no appreciated abnormality, Lids and lashes: appear normal, bilaterally, 23:35 ENT: External ear(s): are unremarkable, Nose: is normal, Mouth: Lips: moist, Oral mucosa: pink and intact, moist, Posterior pharynx: Airway: no evidence of obstruction, patent, 23:35 Neck: ROM/movement: is normal, is supple, without pain, no range of motions limitations, 23:35 Chest/axilla: Inspection: normal, 23:35 Cardiovascular: Rate: normal, Rhythm: regular, Edema: is not appreciated, JVD: is not appreciated, 23:35 Respiratory: the patient does not display signs of respiratory distress, Respirations: labored breathing, that is moderate, Breath sounds: bronchial sounds, that are moderate, are heard diffusely, stridor, is not appreciated, wheezing: that is mild, is heard diffusely, 23:35 Abdomen/GI: Inspection: abdomen appears normal, Palpation: abdomen is soft and non-tender, in all quadrants, 23:35 Back: pain, is absent, ROM is normal, 23:35 Skin: no rash present. 23:35 Neuro: Orientation: to person, place \\T\\ time. Mentation: is normal, Motor: moves all fours, strength is normal, Sensation: is normal, Vital Signs: 23:13 BP 142 / 75; Pulse 86; Resp 25; Temp 98.5; Pulse Ox 93% on R/A; Weight 103.42 kg; al5 Height 5 ft. 5 in. ; Pain 5/; 03/13 01:16 BP 112 / 60; Pulse 76; Resp 20; Temp 98.5; Pulse Ox 98% on Nebulizer Mask; Pain 0/10; bm8 03:10 BP 115 / 68; Pulse 76; Resp 17; Temp 98.5; Pulse Ox 94% ; Pain 0/10; bm8 03/12 23:13 Body Mass Index 37.94 (103.42 kg, 165.1 cm) al5 03/12 23:13 Pain Scale: Adult al5 03 01:16 Pain Scale: Adult bm8 03:10 Pain Scale: Adult bm8 Jessica Coma Score: 01:16 Eye Response: spontaneous(4). Motor Response: obeys commands(6). Verbal Response: bm8 oriented(5). Total: 15. 03:10 Eye Response: spontaneous(4). Motor Response: obeys commands(6). Verbal Response: bm8 oriented(5). Total: 15. MDM: 03/12 23:05 Patient medically screened. 03/13 00:00 Differential diagnosis: asthma, Bronchitis CHF exacerbation, Chronic Obstructive cp Pulmonary Disease pneumonia, Pneumothorax pulmonary edema, Pulmonary Embolism Sepsis. 02:05 Data reviewed: vital signs, nurses notes, lab test result(s), and as a result, I will cp admit patient. 02:05 Management of patient was discussed with the following: Hospitalist: DR Bell will cp admit after discussion. I considered the following discharge prescriptions or medication management in the emergency department Medications were administered in the Emergency Department. See SEP. 03/12 23:23 Order name: Basic Metabolic Panel; Complete Time: 00:28 03/13 01:41 Interpretation: Normal except: GLUC 110. 03/12 23:23 Order name: CBC with Diff; Complete Time: 00:28 03/13 01:42 Interpretation: Normal except: WBC 11.10; RBC 4.88. 03/12 23:23 Order name: D-Dimer; Complete Time: 00:28 03/12 23:23 Order name: LFT's; Complete Time: 00:28 03/13 01:43 Interpretation: Normal except: ALK 123; GLOB 4.3; A/G 0.8. 03/12 23:23 Order name: Magnesium; Complete Time: 00:28 03/12 23:23 Order name: NT PRO-BNP; Complete Time: 00:28 03/12 23:23 Order name: PT-INR; Complete Time: 00:28 03/13 01:43 Interpretation: PT 12.9; Reviewed. 03/12 23:23 Order name: Troponin HS; Complete Time: 00:28 03/12 23:23 Order name: SARS RAPID; Complete Time: 00:28 03/12 23:23 Order name: Influenza Screen (a \\T\\ B); Complete Time: 00:28 cp 03/12 23:23 Order name: XRAY Chest (1 view) cp 03/13 00:31 Order name: CT Chest For PE Angio cp 03/12 23:23 Order name: EKG; Complete Time: 23:24 cp 03/13 02:03 Order name: CONS Physician Consult EDMS 03/12 23:23 Order name: Cardiac monitoring; Complete Time: 23:25 cp 03/12 23:23 Order name: EKG - Nurse/Tech; Complete Time: 23:25 cp 03/12 23:23 Order name: IV Saline Lock; Complete Time: 23:25 cp 03/12 23:23 Order name: Labs collected and sent; Complete Time: 23:25 cp 03/12 23:23 Order name: O2 Per Protocol; Complete Time: 23:25 cp 03/12 23:23 Order name: O2 Sat Monitoring; Complete Time: 23:25 cp 03/13 01:44 Order name: Misc. Order: ambulate patient with pulse ox; Complete Time: 01:51 cp EC/02 23:28 Rate is 82 beats/min. Rhythm is regular. OK interval is normal. QRS interval is normal. cp QT interval is normal. Interpreted by me. Reviewed by me. Administered Medications: 23:40 Drug: Aspirin PO Chewable Tablet 324 mg PO once; 81 mg tablets x 4 Route: PO; 8 03/13 02:15 Follow up: Response: No adverse reaction [facility] 03/12 23:40 Drug: DuoNeb Nebulize (2.5 mg - 0.5 mg) 3 ml Nebulizer once Route: Nebulizer; 8 03/13 01:04 Follow up: Response: No adverse reaction [facility] 03/12 23:40 Drug: MethylPrednisoLONE IVP 125 mg IVP once Route: IVP; Site: left hand; 8 03/13 01:04 Follow up: Response: No adverse reaction 8 01:26 Drug: Levalbuterol Inhalation 1.25 mg Inhalation once Route: Inhalation; 8 01:46 Follow up: Response: No adverse reaction 8 02:14 Drug: Piperacillin-Tazobactam IVPB 3.375 grams IVPB once over 60 mins; (mix in NS 100 bm8 mL) Route: IVPB; Infused Over: 60 mins; Site: right forearm; 03:12 Follow up: Response: No adverse reaction; IV Status: Completed infusion; IV Intake: bm8 100ml Disposition Summary: 03/13/24 02:00 Hospitalization Ordered Notes: Hospitalization Status: Inpatient Admission cp Provider: Prince comfort Edwards [facility] cp Condition: Stable cp Problem: new cp Symptoms: have improved cp Bed/Room Type: Standard cp Room Assignment: 208(03/13/24 02:13) rv1 Diagnosis - Dyspnea cp - Chest pain, unspecified cp - Pneumonia in diseases classified elsewhere cp Forms: - Medication Reconciliation Form cp - SBAR form cp - Leadership Thank You Letter cp Addendum: 03/18/2024 20:35 I was immediately available for consultation during this patient's visit. I did not e c2 personally see the patient or discuss the patient with the ALVARO. . Signatures: Dispatcher [employer] EDMS Silver Santiago PA PA cp Marylou Yeager rv1 Mitch Feliz MD MD ec2 Edvin Uriarte RN RN bm8 Serene Diego RN RN al5 Corrections: (The following items were deleted from the chart) 03/13 02:13 02:00 cp rv1
--- NOTE | 2024-03-13 02:00 | ER ---
Nurse's Notes [facility] Name: Varsha Huang Age: 58 yrs Sex: Female : 1965 Arrival Date: 03/12/2024 Time: 23:00 Bed 5 Private MD: Diagnosis: Dyspnea;Chest pain, unspecified;Pneumonia in diseases classified elsewhere Presentation: 03/12 23:13 Chief complaint: Patient states: c/o shortness of breath x1 week, is experiencing some al5 chest pain at this time. states she went to the dr on Tuesday and was diagnosed with a URI and was sent home with prednisone, levofloxacin and breathing treatments. pt states medications has not helped. Coronavirus screen: At this time, the client does not indicate any symptoms associated with coronavirus-19. Ebola Screen: No symptoms or risks identified at this time. Initial Sepsis Screen: Does the patient meet any 2 criteria? RR > 20 per min. No. Patient's initial sepsis screen is negative. Does the patient have a suspected source of infection? No. Patient's initial sepsis screen is negative. Risk Assessment: Do you want to hurt yourself or someone else? Patient reports no desire to harm self or others. Onset of symptoms was March 05, 2024. 23:13 Method Of Arrival: Ambulatory al5 23:13 Acuity: BINDU 2 al5 Triage Assessment: 23:17 General: Appears in no apparent distress. Behavior is cooperative. Pain: Complains of al5 pain in chest. EENT: No signs and/or symptoms were reported regarding the EENT system. Neuro: Level of Consciousness is awake, alert, obeys commands, Oriented to person, place, time, situation. Cardiovascular: Reports chest pain, shortness of breath, Capillary refill < 3 seconds Patient's skin is warm and dry. Respiratory: Reports shortness of breath at rest on exertion since mar 05 2024 Airway is patent Respiratory effort is even, unlabored, Respiratory pattern is regular, symmetrical, tachypnea Onset: The symptoms/episode began/occurred last week, the patient has moderate shortness of breath. GI: No signs and/or symptoms were reported involving the gastrointestinal system. : No signs and/or symptoms were reported regarding the genitourinary system. Derm: Skin is intact, Skin is pink, warm \T\ dry. normal. Musculoskeletal: No signs and/or symptoms reported regarding the musculoskeletal system. Historical: - Allergies: 23:16 Sulfa (Sulfonamide Antibiotics); al5 23:16 Dilaudid; al5 - PMHx: 23:16 ovary cyst right; UTI; al5 - PSHx: 23:16 Cholecystectomy; tubal ligation; hernia repair; al5 - Immunization history:: Adult Immunizations up to date. - Infectious Disease History:: Denies. - Social history:: Smoking status: Patient/guardian denies using tobacco. Screenin:19 [facility] ED Fall Risk Assessment (Adult) History of falling in the last 3 months, al5 including since admission No falls in past 3 months (0 pts) Confusion or Disorientation No (0 pts) Intoxicated or Sedated No (0 pts) Impaired Gait No (0 pts) Mobility Assist Device Used No (0 pt) Altered Elimination No (0 pt) Score/Fall Risk Level 0 - 2 = Low Risk Oriented to surroundings, Maintained a safe environment, Hourly rounding (assess needs \T\ fall precautionary measures) done. Abuse screen: Denies threats or abuse. Denies injuries from another. Nutritional screening: No deficits noted. Tuberculosis screening: No symptoms or risk factors identified. Assessment: 03/13 01:16 Reassessment: Patient appears in no apparent distress at this time. Patient and/or bm8 family updated on plan of care and expected duration. Pain level reassessed. Patient is alert, oriented x 3, equal unlabored respirations, skin warm/dry/pink. Pain: Denies pain. Neuro: No deficits noted. Level of Consciousness is awake, alert, obeys commands, Oriented to person, place, time, situation, Appropriate for age. Cardiovascular: Denies chest pain, Heart tones S1 S2 present Capillary refill < 3 seconds in bilateral fingers toes Rhythm is sinus rhythm. Respiratory: Airway is patent Respiratory effort is even, unlabored, Respiratory pattern is regular, symmetrical, Breath sounds are coarse bilaterally. the patient has moderate shortness of breath. GI: No signs and/or symptoms were reported involving the gastrointestinal system. : No signs and/or symptoms were reported regarding the genitourinary system. EENT: No signs and/or symptoms were reported regarding the EENT system. Derm: No signs and/or symptoms reported regarding the dermatologic system. Musculoskeletal: No signs and/or symptoms reported regarding the musculoskeletal system. 02:00 Reassessment: AMBULATED PT UP AND DOWN TRAUMA MCGEE. PT MAINTAINED AN O2 SATURATION OF bm8 90%- 92% DURING AMBULATION. Reassessment: Patient appears in no apparent distress at this time. Patient and/or family updated on plan of care and expected duration. Pain level reassessed. Patient is alert, oriented x 3, equal unlabored respirations, skin warm/dry/pink. Patient states symptoms have improved. Respiratory: Airway is patent Respiratory effort is even, unlabored, Respiratory pattern is regular, symmetrical, Breath sounds with wheezes bilaterally. the patient has moderate shortness of breath. 03:10 Reassessment: No changes from previously documented assessment. bm8 Vital Signs: 03/12 23:13 BP 142 / 75; Pulse 86; Resp 25; Temp 98.5; Pulse Ox 93% on R/A; Weight 103.42 kg; al5 Height 5 ft. 5 in. ; Pain 5/10; 03/13 01:16 BP 112 / 60; Pulse 76; Resp 20; Temp 98.5; Pulse Ox 98% on Nebulizer Mask; Pain 0/10; bm8 03:10 BP 115 / 68; Pulse 76; Resp 17; Temp 98.5; Pulse Ox 94% ; Pain 0/10; bm8 03/12 23:13 Body Mass Index 37.94 (103.42 kg, 165.1 cm) al5 03/12 23:13 Pain Scale: Adult al5 03/13 01:16 Pain Scale: Adult bm8 03:10 Pain Scale: Adult bm8 [place] Coma Score: 01:16 Eye Response: spontaneous(4). Motor Response: obeys commands(6). Verbal Response: bm8 oriented(5). Total: 15. 03:10 Eye Response: spontaneous(4). Motor Response: obeys commands(6). Verbal Response: bm8 oriented(5). Total: 15. ED Course: 03/12 23:02 Patient arrived in ED. mr 23:05 Silver Santiago PA is PHCP. cp 23:05 Mitch Feliz MD is Attending Physician. cp 23:16 Triage completed. al5 23:19 Arm band placed on right wrist. Patient placed in the treatment room, on a stretcher, al5 on pulse oximetry. 23:25 Uriarte, Edvin, RN is Primary Nurse. 8 03/13 00:01 XRAY Chest (1 view) In Process Unspecified. EDMS 01:04 CT Chest For PE Angio In Process Unspecified. EDMS 01:16 Patient has correct armband on for positive identification. Bed in low position. Call bm8 light in reach. Side rails up X2. Adult w/ patient. Client placed on continuous cardiac and pulse oximetry monitoring. NIBP monitoring applied. site monitor on. Pulse ox on. NIBP on. Door closed. Noise minimized. Warm blanket given. Pillow given. Verbal reassurance given. Head of bed elevated. 01:16 No provider procedures requiring assistance completed. Initial lab(s) drawn, by ED bm8 staff, sent to lab. EKG done, by ED staff, reviewed by Silver STEIN. Inserted saline lock: 20 gauge in left hand, using aseptic technique. Blood collected. Flushed with 10 mL NS. 01:19 Inserted saline lock: 20 gauge in right forearm, using aseptic technique. Flushed with bm8 10 mL NS. 01:58 Prince Edwards MD is Hospitalizing Provider. cp 03:10 Provided Education on: NEED FOR ADMISSION. bm8 03:10 Patient admitted, IV remains in place. bm8 Administered Medications: 03/12 23:40 Drug: Aspirin PO Chewable Tablet 324 mg PO once; 81 mg tablets x 4 Route: PO; 8 03/13 02:15 Follow up: Response: No adverse reaction [facility] 03/12 23:40 Drug: DuoNeb Nebulize (2.5 mg - 0.5 mg) 3 ml Nebulizer once Route: Nebulizer; 8 03/13 01:04 Follow up: Response: No adverse reaction 8 03/12 23:40 Drug: MethylPrednisoLONE IVP 125 mg IVP once Route: IVP; Site: left hand; bm8 03/13 01:04 Follow up: Response: No adverse reaction bm8 01:26 Drug: Levalbuterol Inhalation 1.25 mg Inhalation once Route: Inhalation; bm8 01:46 Follow up: Response: No adverse reaction 8 02:14 Drug: Piperacillin-Tazobactam IVPB 3.375 grams IVPB once over 60 mins; (mix in NS 100 bm8 mL) Route: IVPB; Infused Over: 60 mins; Site: right forearm; 03:12 Follow up: Response: No adverse reaction; IV Status: Completed infusion; IV Intake: bm8 100ml Medication: 01:16 VIS not applicable for this client. bm8 Intake: 03:12 IV: 100ml; Total: 100ml. bm8 Outcome: 02:00 Decision to Hospitalize by Provider. cp 03:10 Admitted to Med/surg accompanied by nurse, via wheelchair, room 208, bm8 03:10 Condition: stable 03:10 Instructed on the need for admit, Demonstrated understanding of instructions, follow-up care, 03:12 Patient left the ED. bm8 Signatures: Dispatcher [employer] EDMS AustenSaige, Reg Reg mr Silver Santiago, SARITA STEIN cp Edvin Uriarte, RN RN bm8 Serene Diego, RN RN al5 Corrections: (The following items were deleted from the chart) 01:20 01:19 Inserted saline lock: 20 gauge in right forearm, using aseptic technique. bm8 bm8 02:14 01:16 BP 112 / 160; Pulse 76bpm; Resp 20bpm; Pulse Ox 98% Nebulizer Mask; Temp 98.5F; bm8 Pain 0/10, Adult; bm8
[2024-03-13] MEDS ORDERED: NA CHLORIDE 0.9% 100 ML ONE (02:03)
[2024-03-13] MEDS ORDERED: PIPERACIL/TAZO 3.375 GM VIAL IV ONE (02:03)
--- NOTE | 2024-03-13 02:14 | P.HP ---
Certification for Inpatient Patient admitted to: Inpatient With expected LOS: >2 Midnights Practitioner: I am a practitioner with admitting privileges, knowledge of patient current condition, hospital course, and medical plan of care. Services: Services provided to patient in accordance with Admission requirements found in Title 42 Section 412.3 of the Code of Federal Regulations Patient History Date of Service: 03/13/24 Reason for admission: Shortness of breath History of Present Illness: Patient is a 58-year-old female with a past medical history of tobacco smoking. Otherwise, no other medical issues. She presented to the ER complaining of ongoing shortness of breath for the past 2 weeks. Patient is reporting dyspnea on exertion, persistent cough sometimes productive with whitish sputum. She denies any fever or chills. Patient states that she has stopped smoking over 80s. But her symptoms have persisted. She was prescribed levofloxacin and prednisone but without much symptomatic relief. She decided to present to the ER. CT chest in the ER revealed mild scattered groundglass opacity concerning for infectious process versus edema. Patient BNP is 27. During my evaluation, she spoke in full sentences. Had evidence of expiratory wheezing on auscultation. Allergies Sulfa (Sulfonamide Antibiotics) Allergy (Verified 01/16/22 12:43) Anaphylaxis hydromorphone [From Dilaudid] Adverse Reaction (Verified 01/16/22 15:58) Shortness of breath Home Medications: Fluoxetine HCl [Prozac] 20 mg PO DAILY 01/16/22 Gabapentin 300 mg PO PRN 01/16/22 Albuterol Neb [Proventil 0.083% Neb Soln] 2.5 mg NEB [id number] #60 amp 01/18/22 Arformoterol Tartrate [Brovana] 15 mcg NEB BIDRESP #30 vial.neb 01/18/22 Azithromycin Tab [Zithromax*] 250 mg PO DAILY #5 tab 01/18/22 Budesonide/Formoterol Fumarate [Symbicort 160-4.5 Mcg Inhaler] 1 puff IH BID #1 hfa.aer.ad 01/18/22 Cefdinir [Omnicef] 300 mg PO BID #10 capsule 01/18/22 Ipratropium Neb [Atrovent*] 0.5 mg IH [id number] #60 amp 01/18/22 predniSONE [Prednisone*] 20 mg PO BID #11 tab 01/18/22 - Past Medical/Surgical History Diabetic: No -: anxiety -: depression -: cholesystectomy -: Tubal Ligation -: Uterine Ablation -: Ankle sx -: Back sx - Family History Mother -: Heart disease, Other (see notes) Notes: palpitations - Social History Alcohol use: No CD- Drugs: No Caffeine use: No Physical Examination - Physical Exam General: Alert, In no apparent distress HEENT: Atraumatic, Normocephalic Respiratory: Expiratory wheezes Cardiovascular: No edema, Normal pulses, Regular rate/rhythm, Normal S1 S2 Musculoskeletal: No clubbing Neurological: Normal speech, Normal strength at 5/5 x4 extr - Studies Laboratory Data (last 24 hrs) 03/12/24 03/12/24 03/12/24 23:33 23:33 23:33 WBC 11.10 H Hgb 13.6 Hct 42.1 Plt Count 246 PT 12.9 H INR 1.16 Sodium 138 Potassium 3.6 BUN 13 Creatinine 0.67 Glucose 110 H Magnesium 2.0 Total Bilirubin 0.5 AST 15 ALT 27 Alkaline Phosphatase 123 H Microbiology Data (last 24 hrs): 03/12/24 23:33 Nasopharnyx Influenza Type A Antigen Screen - Final 03/12/24 23:33 Nasopharnyx Influenza Type B Antigen Screen - Final Assessment and Plan - Problems (Diagnosis) (1) COPD exacerbation Current Visit: No Status: Acute - Plan Assessment This is a 58-year-old female with a past medical history of tobacco smoking is presenting for persistent shortness of breath ongoing for the past 2 weeks. She has evidence of mild scattered groundglass opacities on CT angio of the chest. Pulmonary embolism was ruled out. Her BNP is 27. COPD exacerbation Tobacco smoking Leukocytosismild Plan: Admit inpatient Will start patient on azithromycin, Solu-Medrol and one-time dose of Lasix Nonurgent consult to pulmonary medicine Pantoprazole for GI prophylaxis Patient is full code - Advance Directives Does patient have a Living Will: No Does patient have a Durable POA for Healthcare: No
[2024-03-13] MEDS: IPRATROPIUM BROM 0.5MG/2.5ML NEB SCH (02:44)
[2024-03-13] MEDS: ALBUTEROL 2.5 MG/3 ML NEB SOL NEB SCH ×2 (02:45→21:00)
[2024-03-13] MEDS: AZITHROMYCIN IV 500 MG in NA CHLORIDE 0.9% 250 ML IVPB SCH (04:05)
[2024-03-13] MEDS: FUROSEMIDE 40 MG/4 ML VIAL IV ONE (04:06)
[2024-03-13 05:08] VITALS: BMI 39.1
[2024-03-13] MEDS: PANTOPRAZOLE 40MG TABLET PO SCH (06:04)
[2024-03-13] MEDS: ALBUTEROL 2.5 MG/3 ML NEB SOL IH SCH (08:39)
[2024-03-13] MEDS ORDERED: METHYLPREDNISOLONE 40 MG INJ IV SCH (09:00)
[2024-03-13] MEDS: DULERA 200/5 (MOMETASONE/FORMOTEROL) INHALER IH SCH (09:13)
[2024-03-13] MEDS: predniSONE 20 MG TAB PO SCH (09:13)
--- NOTE | 2024-03-13 10:34 | RAD REPORT ---
EXAM DESCRIPTION: CT - Chest For Pe Angio - 03/13/2024 7:[address] Angiography Chest With Intravenous Contrast CLINICAL HISTORY: The patient is 58 years old and is Female; Chest pain;SOB TECHNIQUE: Axial computed tomographic angiography images of the chest with intravenous contrast. S agittal and coronal reformatted images were created and reviewed. This CT exam was performed using one or more of the following dose reduction techniques: automated exposure control, adjustment of t he mA and/or kV according to patient size, and/or use of iterative reconstruction technique. MIP reconstructed images were created and reviewed. COMPARISON: CT January 16, 2022 FINDINGS: PULMONARY ARTERIES: There are no obvious filling defects identified within the pulmonary arteries to suggest pulmonary embolism. AORTA: No acute findings. No thoracic aortic aneurysm. LUNGS: Subtle scattered areas of groundglass opacity are present most prominent within the bilate ral upper lobes and to lesser extent the right lower lobe. There is no lobar consolidation. The trach eobronchial tree is patent. PLEURAL SPACE: Unremarkable. No significant effusion. No pneumothorax. HEART: Unremarkable. No cardiomegaly. No significant pericardial effusion. No evidence of R V dysfunction. BONES/JOINTS: No acute fracture. No dislocation. SOFT TISSUES: Unremarkable. LYMPH NODES: Unremarkable. No enlarged lymph nodes. LIVER: The liver is enlarged and mildly fatty. GALLBLADDER AND BILE DUCTS: Surgical clips are present in the right upper quadrant, consistent wi th previous cholecystectomy. IMPRESSION: 1. No evidence of pulmonary embolism. 2. Mild scattered groundglass opacities. Findings may be secondary to infectious versus edematous p rocess. Electronically signed by: Whitley Corado MD 03/13/2024 01:27 AM CDT Due to temporary technical issues with the PACS/Fluency reporting system, reports are being signed by the in house radiologists without review as a courtesy to insure prompt reporting. The interpreting radiologist is fully responsible for the content of the report.
--- NOTE | 2024-03-13 11:11 | RAD REPORT ---
EXAM DESCRIPTION: RAD - Chest Single View - 03/12/2024 11:59 pm CLINICAL HISTORY: The patient is 58 years old and is Female; Chest pain, cough. TECHNIQUE: Single view of the chest. COMPARISON: CTA Chest 01/16/2022. FINDINGS: Lungs: No pulmonary vascular congestion or consolidation. Pleural space: Unremarkable. No pneumothorax. Heart: Unremarkable. No cardiomegaly. Mediastinum: Unremarkable. Bones/joints: No acute fracture. Upper abdomen: No free air in the visualized upper abdomen. IMPRESSION: No acute cardiopulmonary process identified. Electronically signed by: Marguerite Pichardo MD 03/13/2024 06:50 AM CDT RP ND Due to temporary technical issues with the PACS/Fluency reporting system, reports are being signed by the in house radiologists without review as a courtesy to insure prompt reporting. The interpreting radiologist is fully responsible for the content of the report.
--- NOTE | 2024-03-13 12:34 | P.CNS ---
Date of Consult: 03/13/24 Chief Complaint: Shortness of breath History of Present Illness: Patient is 58 years of age admitted with progressive dyspnea for the past week prior history of COPD patient is an active smoker some accompanying cough and congestion feeling better Allergies Sulfa (Sulfonamide Antibiotics) Allergy (Verified 01/16/22 12:43) Anaphylaxis hydromorphone [From Dilaudid] Adverse Reaction (Verified 01/16/22 15:58) Shortness of breath Home Medications: Fluoxetine HCl [Prozac] 20 mg PO DAILY 01/16/22 Gabapentin 300 mg PO PRN 01/16/22 Albuterol Neb [Proventil 0.083% Neb Soln] 2.5 mg NEB [id number] #60 amp 01/18/22 Arformoterol Tartrate [Brovana] 15 mcg NEB BIDRESP #30 vial.neb 01/18/22 Azithromycin Tab [Zithromax*] 250 mg PO DAILY #5 tab 01/18/22 Budesonide/Formoterol Fumarate [Symbicort 160-4.5 Mcg Inhaler] 1 puff IH BID #1 hfa.aer.ad 01/18/22 Cefdinir [Omnicef] 300 mg PO BID #10 capsule 01/18/22 Ipratropium Neb [Atrovent*] 0.5 mg IH [id number] #60 amp 01/18/22 predniSONE [Prednisone*] 20 mg PO BID #11 tab 01/18/22 - Past Medical/Surgical History Diabetic: No -: anxiety -: depression -: cholesystectomy -: Tubal Ligation -: Uterine Ablation -: Ankle sx -: Back sx - Family History Mother Medical History: Heart disease, Other (see notes) Notes: palpitations - Social History Smoking Status: Current every day smoker Alcohol use: No CD- Drugs: No Caffeine use: No Place of Residence: Home Review of Systems 10-point ROS is otherwise unremarkable ENT: Nose Discharge Respiratory: Shortness of Breath Physical Examination Temp Pulse Resp BP Pulse Ox 97.0 F 85 20 109/74 95 03/13/24 12:00 03/13/24 12:00 03/13/24 12:00 03/13/24 12:00 03/13/24 12:00 General: Alert, Oriented x3 Neck: Supple Respiratory: Expiratory wheezes Cardiovascular: No edema, Regular rate/rhythm Laboratory Data (last 24 hrs) 03/12/24 03/12/24 03/12/24 23:33 23:33 23:33 WBC 11.10 H Hgb 13.6 Hct 42.1 Plt Count 246 PT 12.9 H INR 1.16 Sodium 138 Potassium 3.6 BUN 13 Creatinine 0.67 Glucose 110 H Magnesium 2.0 Total Bilirubin 0.5 AST 15 ALT 27 Alkaline Phosphatase 123 H - Problems (1) COPD exacerbation Current Visit: No Status: Acute Plan: Patient is 58 years of age admitted with progressive dyspnea over the past week no prior history of obstructive airways disease prior medical history does not take any medication scan shows some patchy groundglass changes no pulmonary embolism chest x-ray is clear mildly elevated alkaline phosphatase vital signs stable no fever patient is stable for discharge to follow-up with me in 2 weeks outpatient pulmonary function testing counseled about smoking
--- NOTE | 2024-03-13 12:35 | EKG ---
Test Date: 2024-03-12 Test Time: 23:23:42 Shotblaster: BUFFY MEASUREMENT RESULTS: Intervals: Rate: 82 MO: 156 QRSD: 78 QT: 354 QTc: 413 [place]: P: 59 MO: 156 QRS: 65 T: 50 INTERPRETIVE STATEMENTS: Normal sinus rhythm Normal ECG Compared to ECG 01/16/2022 05:19:47 Myocardial infarct finding no longer present Electronically Signed On 03-13-24 12:35:11 CDT by Abdiaziz Rosales
[2024-03-13] MEDS: PNEUMOCOCCAL VACCINE 0.5 ML IMVAC ONE (18:00)
[2024-03-14] MEDS ORDERED: ALBUTEROL INHALER 200 PUFF/6.7 GM IH PRN (09:21)
[2024-03-14 09:47] LABS: Absolute Lymphocytes (CBC) 2.1 K/uL (0.7-4.9); Absolute Monocytes 0.4 K/uL (0.1-1.3); Absolute Neutrophil 8.6 K/uL (1.8-8.0); Basophils % 0.4 % (0-1.3); Eosinophils % 0.2 % (0-4.4); Hematocrit 44.4 % (36.0-45.0); Hemoglobin 14.4 g/dL (12.0-15.0); Lymphocytes % 19.1 % (15.3-44.8); MCH 28.4 pg (27.0-35.0); MCHC 32.3 g/dL (32.0-36.0); MCV 87.8 fL (80-100); Monocytes % 3.2 % (3.3-12.3); Neutrophils % 77.1 % (41.7-73.7); Platelets 262 thou/uL (152-406); RBC Red Blood Cell Count 5.06 M/uL (3.86-4.86); Red Cell Distribution Width 13.4 % (12.1-15.2)
[2024-03-14 09:51] VITALS: BP 145/67; TEMP 96.8
[2024-03-14 09:58] LABS: Anion Gap 10.1 mEq/L (5.0-15.0); Potassium 4.1 mEq/L (3.5-5.1)
[2024-03-14 10:16] VITALS: O2SAT 93
--- NOTE | 2024-03-14 10:43 | P.PN ---
Date of Service: 03/14/24 Physical Examination - Physical Exam General: Alert, In no apparent distress HEENT: Atraumatic, Normocephalic Respiratory: Expiratory wheezes Cardiovascular: No edema, Normal pulses, Regular rate/rhythm, Normal S1 S2 Musculoskeletal: No clubbing Neurological: Normal speech, Normal strength at 5/5 x4 extr Assessment and Plan - Problems (Diagnosis) (1) COPD exacerbation (2) tobacco use (3) acute hypoxic respiratory failure secondary to COPD (4) bilateral pneumonia Current Visit: No Status: Acute - Plan Assessment This is a 58-year-old female with a past medical history of tobacco smoking is presenting for persistent shortness of breath ongoing for the past 2 weeks. She has evidence of mild scattered groundglass opacities on CT angio of the chest. Pulmonary embolism was ruled out. Her BNP is 27. Chest CT IMPRESSION: 1. No evidence of pulmonary embolism. 2. Mild scattered groundglass opacities. Findings may be secondary to infectious versus edematous process. COPD exacerbation Tobacco smoking Leukocytosismild Plan: Admit inpatient Will start patient on azithromycin, Solu-Medrol and one-time dose of Lasix Nonurgent consult to pulmonary medicine Pantoprazole for GI prophylaxis Patient is full code - Advance Directives Does patient have a Living Will: No Does patient have a Durable POA for Healthcare: No
--- NOTE | 2024-03-14 10:44 | P.DS ---
Admission Date: 03/13/24 Discharge Date: 03/14/24 Reason for Admission: Shortness of breath Brief History of Present Illness: Patient is a 58-year-old female with a past medical history of tobacco smoking. Otherwise, no other medical issues. She presented to the ER complai gaudencio of ongoing shortness of breath for the past 2 weeks. Patient is reporting dyspnea on exertion, persistent cough sometimes productive with whitish sputum. She denies any fever or chills. Patient states that she has stopped smoking over 80s. But her symptoms have persisted. She was prescribed levofloxacin and prednisone but without much symptomatic relief. She decided to present to the ER. CT chest in the ER revealed mild scattered groundglass opacity concerning for infectious process versus edema. Patient BNP is 27. During my evaluation, she spoke in full sentences. Had evidence of expiratory wheezing on auscultation. General: Alert, In no apparent distress HEENT: Atraumatic, Normocephalic Respiratory: Expiratory wheezes Cardiovascular: No edema, Normal pulses, Regular rate/rhythm, Normal S1 S2 Musculoskeletal: No clubbing Neurological: Normal speech, Normal strength at 5/5 x4 extr Hospital Course: 58-year-old female with a past medical history of tobacco smoking. Otherwise, no other medical issues. She presented to the ER complaining of ongoing shortness of breath for the past 2 weeks. Patient is reporting dyspnea on exertion, persistent cough sometimes productive with whitish sputum. She denies any fever or chills. Noted to have COPD exacerbation. Treated with nebulizers, oxygen, IV antibiotics, she is stable to discharge home, follow-up with pulmonary after discharge, follow-up with primary care after discharge. Assessment COPD exacerbation Tobacco use She has nebulizer at home with albuterol, albuterol inhaler given to patient at bedside Treated with Pneumovax Discharged home on p.o. prednisone 20 mg twice daily Treated with Levaquin 750 daily for [address] scan shows some patchy groundglass changes no pulmonary embolism chest x-ray is clear Continue home medicines as previously prescribed GOAL: Clear understanding of disease process INSTRUCTIONS: Physician Discharge Instructions: -Follow-up with PCP in 1 to 2 weeks -Please call Dr. Cadet at [phone] if any questions regarding hospital stay -Please call nursing station at [phone] if any nursing or medication questions -Return to the emergency room if symptoms worsen Diet: ADA, low sodium Activity: Fall precautions <Kemi Marks - Last Filed: 03/14/24 15:17> Admission Date: 03/13/24 Discharge Date: 03/14/24 Hospital Course: Chart has been reviewed. Events of the last 24 hours have been noted. Case discussed with ALVARO. I performed a substantial part of the MDM during this patient's care today. I personally made or approved the documented management plan and acknowledge its risk of complications. I agree with the findings and documentation provided in the ALVARO's notes Patient has done well during hospital stay. Patient is clinically doing much better. Labs are stable. At this time, patient is stable for discharge with outpatient follow-up with PCP and specialist. Patient is told to call me if he has any questions over the next few days and we can give patient taking care of at that time. <Harmony Cadet - Last Filed: 03/23/24 02:23> Disposition: ROUTINE DISCHARGE Discharge Condition: GOOD Vital Signs/Physical Exam: Temp Pulse Resp BP Pulse Ox 96.8 F 57 16 145/67 H 93 03/14/24 08:00 03/14/24 08:00 03/14/24 08:00 03/14/24 08:00 03/14/24 08:00 Laboratory Data at Discharge: WBC 11.20 thou/uL (4.3-10.9) H 03/14/24 09:35 Hgb 14.4 g/dL (12.0-15.0) 03/14/24 09:35 Hct 44.4 % (36.0-45.0) 03/14/24 09:35 Plt Count 262 thou/uL (152-406) 03/14/24 09:35 PT 12.9 SECONDS (9.4-12.5) H 03/12/24 23:33 INR 1.16 03/12/24 23:33 Sodium 138 mEq/L (136-145) 03/14/24 09:35 Potassium 4.1 mEq/L (3.5-5.1) 03/14/24 09:35 BUN 22 mg/dL (7-18) H 03/14/24 09:35 Creatinine 0.90 mg/dL (0.55-1.02) 03/14/24 09:35 Glucose 244 mg/dL (74-106) H 03/14/24 09:35 Magnesium 2.0 mg/dL (1.6-2.4) 03/12/24 23:33 Total Bilirubin 0.5 mg/dL (0.2-1.0) 03/12/24 23:33 AST 15 U/L (15-37) 03/12/24 23:33 ALT 27 U/L (13-56) 03/12/24 23:33 Alkaline Phosphatase 123 U/L (45-117) H 03/12/24 23:33 <Kemi Marks - Last Filed: 03/14/24 15:17> Vital Signs/Physical Exam: Temp Pulse Resp BP Pulse Ox 96.8 F 57 16 145/67 H 93 03/14/24 08:00 03/14/24 08:00 03/14/24 08:00 03/14/24 08:00 03/14/24 08:00 Laboratory Data at Discharge: WBC 11.20 thou/uL (4.3-10.9) H 03/14/24 09:35 Hgb 14.4 g/dL (12.0-15.0) 03/14/24 09:35 Hct 44.4 % (36.0-45.0) 03/14/24 09:35 Plt Count 262 thou/uL (152-406) 03/14/24 09:35 PT 12.9 SECONDS (9.4-12.5) H 03/12/24 23:33 INR 1.16 03/12/24 23:33 Sodium 138 mEq/L (136-145) 03/14/24 09:35 Potassium 4.1 mEq/L (3.5-5.1) 03/14/24 09:35 BUN 22 mg/dL (7-18) H 03/14/24 09:35 Creatinine 0.90 mg/dL (0.55-1.02) 03/14/24 09:35 Glucose 244 mg/dL (74-106) H 03/14/24 09:35 Magnesium 2.0 mg/dL (1.6-2.4) 03/12/24 23:33 Total Bilirubin 0.5 mg/dL (0.2-1.0) 03/12/24 23:33 AST 15 U/L (15-37) 03/12/24 23:33 ALT 27 U/L (13-56) 03/12/24 23:33 Alkaline Phosphatase 123 U/L (45-117) H 03/12/24 23:33 <Harmony Cadet - Last Filed: 03/23/24 02:23> Diet: AHA Activity: Fall precautions Time spent managing pt's care (in minutes): 55 <Kemi Marks - Last Filed: 03/14/24 15:17> <Harmony Cadet - Last Filed: 03/23/24 02:23> Home Medications: Fluoxetine HCl [Prozac] 20 mg PO DAILY 01/16/22 Gabapentin 300 mg PO PRN 01/16/22 Albuterol Neb [Proventil 0.083% Neb Soln] 2.5 mg NEB [id number] #60 amp 01/18/22 Arformoterol Tartrate [Brovana] 15 mcg NEB BIDRESP #30 vial.neb 01/18/22 Azithromycin Tab [Zithromax*] 250 mg PO DAILY #5 tab 01/18/22 Budesonide/Formoterol Fumarate [Symbicort 160-4.5 Mcg Inhaler] 1 puff IH BID #1 hfa.aer.ad 01/18/22 Cefdinir [Omnicef] 300 mg PO BID #10 capsule 01/18/22 Ipratropium Neb [Atrovent*] 0.5 mg IH [id number] #60 amp 01/18/22 predniSONE [Prednisone*] 20 mg PO BID #11 tab 01/18/22 predniSONE [Prednisone*] 20 mg PO BID #11 tab 03/14/24 New Medications: predniSONE [Prednisone*] 20 mg PO BID #11 tab Physician Discharge Instructions: 58-year-old female with a past medical history of tobacco smoking. Otherwise, no other medical issues. She presented to the ER complaining of ongoing shortness of breath for the past 2 weeks. Patient is reporting dyspnea on exertion, persistent cough sometimes productive with whitish sputum. She denies any fever or chills. Noted to have COPD exacerbation. Treated with nebulizers, oxygen, IV antibiotics, she is stable to discharge home, follow-up with pulmonary after discharge, follow-up with primary care after discharge. Assessment COPD exacerbation Tobacco use-educated on tobacco cessation She has nebulizer at home with albuterol, albuterol inhaler given to patient at bedside Treated with Pneumovax Discharged home on p.o. prednisone 20 mg twice daily Treated with Levaquin 750 daily for [address] scan shows some patchy groundglass changes no pulmonary embolism chest x-ray is clear Continue home medicines as previously prescribed GOAL: Clear understanding of disease process INSTRUCTIONS: Physician Discharge Instructions: -Follow-up with PCP in 1 to 2 weeks -Please call Dr. Cadet at [phone] if any questions regarding hospital stay -Please call nursing station at [phone] if any nursing or medication questions -Return to the emergency room if symptoms worsen Diet: ADA, low sodium Activity: Fall precautions Followup: Ishaan Hussein MD [ACTIVE - CAN ADMIT] - 1-2 Weeks Thor Hernandez PAC [Primary Care Provider] - 1-2 Weeks
[2024-03-14] MEDS ORDERED: PNEUMOCOCCAL VACCINE 0.5 ML IMVAC ONE (12:00)
== END 2024-03-14 11:49 | disposition home or self-care (01) | DRG 190 ==
LOC: ER 23:00 → ERHOLD 03-13 02:00 → 2ND 03-13 02:19
PROVIDERS: ADMIT Internal Medicine; ATTEND Hospitalist
DX: J44.1 Chronic obstructive pulmonary disease with (acute) exacerbation (principal); J18.9 Pneumonia, unspecified organism; J44.0 Chronic obstructive pulmonary disease with (acute) lower respiratory infection; N83.201 Unspecified ovarian cyst, right side; F17.200 Nicotine dependence, unspecified, uncomplicated; Z88.2 Allergy status to sulfonamides; Z98.51 Tubal ligation status; Z90.49 Acquired absence of other specified parts of digestive tract; Z79.52 Long term (current) use of systemic steroids; Z79.899 Other long term (current) drug therapy
CPT/HCPCS: 36415; 71275; 80048; 85025; 93005; 96365; 96375; 99285; J1940; J2543; J3535; J7050; J7512; J7613; J7614; J7644; Q9967